=== PATIENT | female | born 1960 | race Caucasian/White ===

== ENCOUNTER 2024-03-03 15:02 | Outpatient (AMB) | payer OTHER, SELFPAY ==
[2024-03-03 15:03] VITALS: BP 156/90; PULSE 76; O2SAT 96; BMI 34.8
--- NOTE | 2024-03-03 15:03 | HO.NEPHOV ---
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 Required: No Accompanied by: Self / Same As Patient Allergies acetaminophen [From Percocet] Allergy (Mild, Verified 03/03/24 15:08) Unknown codeine Allergy (Mild, Verified 03/03/24 15:08) Unknown hydrochlorothiazide Allergy (Mild, Verified 03/03/24 15:08) Unknown morphine Allergy (Mild, Verified 03/03/24 15:08) Unknown oxycodone [From Percocet] Allergy (Mild, Verified 03/03/24 15:08) Unknown IVP contrast dye Allergy (Mild, Uncoded 03/03/24 15:08) Unknown sulfa Drugs Allergy (Mild, Uncoded 03/03/24 15:08) Unknown HPI Comments Details: Tanya is a pleasant 63-year-old man with a history of labile hypertension. Up until 2019 she was doing pretty well with respect to her blood pressure. In 2019 she had a syncopal episode and she was found to have orthostatic hypotension. She was admitted to a hospital in [place] and underwent tilt-table test. Due to orthostatic hypotension she was given midodrine. Two years later the blood pressure was rather elevated therefore she discontinued the midodrine. She is currently on lisinopril 5 mg. She has been monitoring of blood pressure at home Blood pressure has been rather erratic. She does have some decrease in blood pressure postprandially. She underwent cardiac workup. She is waiting for a 24 hour Holter monitor results. She underwent a 24 hour ambulatory blood pressure monitoring. The nocturnal readings for excellent. She uses a CPAP machine. Daytime readings were elevated consistently. [facility] Medical History (Updated 03/03/24 @ 16:05 by Zeus Lawson MD) Syncope Spinal stenosis Singers' nodes PTSD (post-traumatic stress disorder) Osteopenia GERD (gastroesophageal reflux disease) Essential (primary) hypertension Depressive disorder COPD (chronic obstructive pulmonary disease) Anxiety Anemia Allergic rhinitis Surgical History (Updated 03/03/24 @ 15:09 by Salma Grider) History of right oophorectomy (~11/2023) History of tubal ligation History of oral surgery History of hysterectomy History of hernia repair H/O section Family History Mother Stroke Hypertension Father Prostate cancer Heart disease Sister Hypertension Paternal Uncle Diabetes Physical Exam Vital Signs: Last Vital Signs Pulse 76 03/03/24 15:03 BP 156/90 H 03/03/24 15:03 Pulse Ox 96 03/03/24 15:03 Oxygen Delivery Method Room Air 03/03/24 15:03 BMI result Body Mass Index 34.8 Const General: comfortable Nutritional Appearance: well nourished Orientation/consciousness: patient oriented x3 HEENT Head: No normal to inspection Mouth: moist mucous membranes Neck Neck: Yes supple and Yes no JVD Resp Auscultation: clear to auscultation bilaterally, no rales and rub present Cardio Jugular venous distension: no JVD Palpation: no palpable S3 and no palpable S4 Heart sounds: no rubs GI Palpation (GI): Soft to palpation and nontender Percussion: No Fluid wave present General: Yes no CVA tenderness Back/Spine/Pelvis Back: no CVA tenderness Skin General skin exam: no rashes or lesions noted Neuro General: patient oriented x3 Extrem General: Yes no pedal edema and No clubbing Results Reviewed Results Reviewed: As of July 2023 Cortisol was normal aldosterone 4.0 renin 0.8 catecholamines were normal. Nephrology Results: No Data to Display Assessment & Plan Assessment & Plan (1) Orthostatic hypotension: Code(s): I95.1 - Orthostatic hypotension Category: Medical (2) HTN (hypertension): Code(s): I10 - Essential (primary) hypertension Category: Medical Plan 63-year-old woman with labile hypertension. Tanya has orthostatic hypotension with occasional tachycardia. No documented supine hypertension based on 24 hour ABP. She has autonomic dysfunction. We discussed all orthostatic precautions including had an elevation at 30 degrees, tight stockings and gradual change in posture. She will benefit from a referral to dysautonomia Clinic. For now I have taken liberty of increasing lisinopril from 5 mg up to 10 mg to be taken during daytime. She can continue monitoring of blood pressure at home. Medications: New lisinopril 10 mg (2 x 5 mg) PO DAILY 180 tabs 2RF
== END 2024-03-03 15:46 | disposition home or self-care (01) ==
LOC: HO.HKA 15:02
PROVIDERS: PCP Internal Medicine; Visit Provider Internal Medicine Hypertension Specialist
DX: I95.1 Orthostatic hypotension (principal); I10 Essential (primary) hypertension
CPT/HCPCS: 99214

== ENCOUNTER → 2024-03-03 15:02 | Outpatient (BNVA) | payer OTHER, SELFPAY | PROVIDERS: PCP Internal Medicine; Visit Provider Internal Medicine Hypertension Specialist | DX: I95.1 Orthostatic hypotension (principal); I10 Essential (primary) hypertension | CPT/HCPCS: 99212 ==

== ENCOUNTER 2024-06-10 13:39 | Outpatient (AMB) | payer OTHER, SELFPAY ==
[2024-06-10 13:48] VITALS: BP 152/98; PULSE 81; O2SAT 96; BMI 33.6
--- NOTE | 2024-06-10 13:48 | HO.NEPHOV ---
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 Accompanied by: Self / Same As Patient Allergies acetaminophen [From Percocet] Allergy (Mild, Verified 06/10/24 13:50) Unknown codeine Allergy (Mild, Verified 06/10/24 13:50) Unknown hydrochlorothiazide Allergy (Mild, Verified 06/10/24 13:50) Unknown morphine Allergy (Mild, Verified 06/10/24 13:50) Unknown oxycodone [From Percocet] Allergy (Mild, Verified 06/10/24 13:50) Unknown IVP contrast dye Allergy (Mild, Uncoded 03/03/24 15:08) Unknown sulfa Drugs Allergy (Mild, Uncoded 03/03/24 15:08) Unknown Medication List - Last Reconciled 06/10/24 by Zeus Lawson MD albuterol sulfate 90 mcg/actuation inhalation atorvastatin 20 mg PO DAILY cholecalciferol (vitamin D3) 50 mcg PO DAILY clonazepam 1 mg PO BID cyanocobalamin (vitamin B-12) 1,000 mcg PO DAILY famotidine 20 mg PO BID PRN fluticasone propionate 50 mcg/actuation 1 spray intranasal DAILY lisinopril 10 mg (2 x 5 mg) PO DAILY mirtazapine 7.5 mg PO BEDTIME omeprazole 20 mg PO QAM propranolol 10 mg PO DAILY semaglutide (weight loss) (Wegovy) mg subcut QWEEK simethicone mg PO PRN valacyclovir 500 mg PO DAILY PRN HPI Comments Details: Tanya is a pleasant 63-year-old man with a history of labile hypertension. Up until 2019 she was doing pretty well with respect to her blood pressure. In 2019 she had a syncopal episode and she was found to have orthostatic hypotension. She was admitted to a hospital in [place] and underwent tilt-table test. Due to orthostatic hypotension she was given midodrine. Two years later the blood pressure was rather elevated therefore she discontinued the midodrine. She is currently on lisinopril 5 mg. She has been monitoring of blood pressure at home Blood pressure has been rather erratic. She does have some decrease in blood pressure postprandially. She underwent cardiac workup. She is waiting for a 24 hour Holter monitor results. She underwent a 24 hour ambulatory blood pressure monitoring. The nocturnal readings for excellent. She uses a CPAP machine. Daytime readings were elevated consistently. 06/10 Home BP aceptable She monitors her BP and takes Lisinopril accordingly REcent Holter was abnormal per patient. She has > 60 PACs Has appointment with Dysautonomia clinic in May of 2025 ! [facility] [place] [facility] Medical History (Updated 03/03/24 @ 16:05 by Zeus Lawson MD) Syncope Spinal stenosis Singers' nodes PTSD (post-traumatic stress disorder) Osteopenia GERD (gastroesophageal reflux disease) Essential (primary) hypertension Depressive disorder COPD (chronic obstructive pulmonary disease) Anxiety Anemia Allergic rhinitis Surgical History History of right oophorectomy (~11/2023) History of tubal ligation History of oral surgery History of hysterectomy History of hernia repair H/O section Family History Mother Stroke Hypertension Father Prostate cancer Heart disease Sister Hypertension Paternal Uncle Diabetes Physical Exam Vital Signs: Last Vital Signs Pulse 81 06/10/24 13:48 BP 130/80 06/10/24 14:04 Pulse Ox 96 06/10/24 13:48 Oxygen Delivery Method Room Air 06/10/24 13:48 BMI result Body Mass Index 33.6 Const General: comfortable; No acute distress Orientation/consciousness: patient oriented x3 Eyes General: appearance normal, both eyes and all related structures Visual Zhang: normal visual zhang by confrontation Neck Neck: Yes supple and Yes no JVD Resp Effort & Inspection: normal respiratory effort and respiratory effort not decreased Auscultation: rhonchi Cardio Palpation: no palpable S3 and no palpable S4 Heart sounds: no rubs GI Inspection: Yes normal to inspection Palpation (GI): Soft to palpation Percussion: Yes normal to percussion Auscultation: normal bowel sounds General: Yes no CVA tenderness Back/Spine/Pelvis Back: no CVA tenderness Skin General skin exam: no petechiae and no purpura Neuro General: patient oriented x3 and no focal motor deficits Extrem General: No clubbing and No edema Results Reviewed Nephrology Results: No Data to Display Assessment & Plan Assessment & Plan (1) Orthostatic hypotension: Code(s): I95.1 - Orthostatic hypotension Category: Medical (2) HTN (hypertension): Code(s): I10 - Essential (primary) hypertension Category: Medical Plan 63-year-old woman with labile hypertension. Tanya has orthostatic hypotension with occasional tachycardia. No documented supine hypertension based on 24 hour ABP. She has autonomic dysfunction. We discussed all orthostatic precautions including had an elevation at 30 degrees, tight stockings and gradual change in posture. She will benefit from a referral to dysautonomia Clinic. No change in meds. She can continue monitoring of blood pressure at home. At her request, will refer her to biometrics head at [facility] Orders: Referrals Cardiac Electrophysiology Referral I95.1 - Orthostatic hypotension Coding Level of Care Code Est Pt Level 4 (36570) Diagnoses Orthostatic hypotension I95.1 HTN (hypertension) I10
[2024-06-10 14:03] VITALS: BP 130/80
[2024-06-10 14:04] VITALS: BP 130/80
== END 2024-06-10 14:19 | disposition home or self-care (01) ==
PROVIDERS: PCP Internal Medicine; Visit Provider Internal Medicine Hypertension Specialist
DX: I95.1 Orthostatic hypotension (principal); I10 Essential (primary) hypertension
CPT/HCPCS: 99214

== ENCOUNTER → 2024-06-10 13:39 | Outpatient (BNVA) | payer OTHER, SELFPAY | PROVIDERS: PCP Internal Medicine; Visit Provider Internal Medicine Hypertension Specialist | DX: I95.1 Orthostatic hypotension (principal); I10 Essential (primary) hypertension | CPT/HCPCS: 99212 ==

== ENCOUNTER 2024-12-08 14:33 | Outpatient (AMB) | payer OTHER, SELFPAY ==
[2024-12-08 14:36] VITALS: BP 110/66; PULSE 76; O2SAT 97; BMI 29.9
--- NOTE | 2024-12-08 14:36 | HO.NEPHOV_ITS ---
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: No Accompanied by: Self / Same As Patient Allergies acetaminophen [From Percocet] Allergy (Mild, Verified 12/08/24 14:38) Unknown codeine Allergy (Mild, Verified 12/08/24 14:38) Unknown hydrochlorothiazide Allergy (Mild, Verified 12/08/24 14:38) Unknown morphine Allergy (Mild, Verified 12/08/24 14:38) Unknown oxycodone [From Percocet] Allergy (Mild, Verified 12/08/24 14:38) Unknown IVP contrast dye Allergy (Mild, Uncoded 03/03/24 15:08) Unknown sulfa Drugs Allergy (Mild, Uncoded 03/03/24 15:08) Unknown Medication List - Last Reconciled 12/08/24 by Zeus Lawson MD albuterol sulfate 90 mcg/actuation inhalation atorvastatin 20 mg PO DAILY cholecalciferol (vitamin D3) 50 mcg PO DAILY clonazepam 1 mg PO BID cyanocobalamin (vitamin B-12) 1,000 mcg PO DAILY famotidine 20 mg PO BID PRN fluticasone propionate 50 mcg/actuation 1 spray intranasal DAILY lisinopril 10 mg (2 x 5 mg) PO DAILY mirtazapine 7.5 mg PO BEDTIME omeprazole 20 mg PO QAM propranolol 10 mg PO BID PRN simethicone mg PO PRN valacyclovir 500 mg PO DAILY PRN HPI Comments Details: Tanya is a pleasant 63-year-old man with a history of labile hypertension. Up until 2019 she was doing pretty well with respect to her blood pressure. In 2019 she had a syncopal episode and she was found to have orthostatic hypotension. She was admitted to a hospital in [place] and underwent tilt-table test. Due to orthostatic hypotension she was given midodrine. Two years later the blood pressure was rather elevated therefore she discontinued the midodrine. She is currently on lisinopril 5 mg. She has been monitoring of blood pressure at home Blood pressure has been rather erratic. She does have some decrease in blood pressure postprandially. She underwent cardiac workup. She is waiting for a 24 hour Holter monitor resu s. She underwent a 24 hour ambulatory blood pressure monitoring. The nocturnal readings for excellent. She uses a CPAP machine. Daytime readings were elevated consistently. 06/10 Home BP aceptable She monitors her BP and takes Lisinopril accordingly REcent Holter was abnormal per patient. She has > 60 PACs Has appointment with Dysautonomia clinic in May of 2025 ! Lost 6 lbs with [employer] 12/08/24 Lost 20 lbs with [facility] Off [facility] now Monitoring BP at home Takes Lisinopril 5 to 10 mg based on BP [facility] Medical History (Updated 03/03/24 @ 16:05 by Zeus Lawson MD) Syncope Spinal stenosis Singers' nodes PTSD (post-traumatic stress disorder) Osteopenia GERD (gastroesophageal reflux disease) Essential (primary) hypertension Depressive disorder COPD (chronic obstructive pulmonary disease) Anxiety Anemia Allergic rhinitis Surgical History History of right oophorectomy (~11/2023) History of tubal ligation History of oral surgery History of hysterectomy History of hernia repair H/O section Family History Mother Stroke Hypertension Father Prostate cancer Heart disease Sister Hypertension Paternal Uncle Diabetes Physical Exam Vital Signs: Last Vital Signs Pulse 76 12/08/24 14:36 BP 110/66 12/08/24 14:36 Pulse Ox 97 12/08/24 14:36 Oxygen Delivery Method Room Air 12/08/24 14:36 BMI result Body Mass Index 29.9 Comfortable Neck supple no JVD. Lungs entry equal no rales. Heart S1-S2 heard no gallop or rub. Abdomen soft nontender. Neuro alert awake oriented. No asterixis. Extremities no edema. Results Reviewed Results Reviewed: As of July 2023 Cortisol was normal aldosterone 4.0 renin 0.8 catecholamines were normal. Nephrology Results: No Data to Display Assessment & Plan Assessment & Plan (1) Orthostatic hypotension: Code(s): I95.1 - Orthostatic hypotension Category: Medical (2) HTN (hypertension): Code(s): I10 - Essential (primary) hypertension Category: Medical Plan 63-year-old woman with labile hypertension. Tanya has a h/o orthostatic hypotension with occasional tachycardia. No documented supine hypertension based on 24 hour ABP. She has autonomic dysfunction. We discussed all orthostatic precautions including had an elevation at 30 degrees, tight stockings and gradual change in posture. Referred to dysautonomia Clinic - appoinment Pending in May 2024 No change in meds. She can continue monitoring of blood pressure at home. At her request, referred her to helminthologist at [facility] - work up in progress. Coding Level of Care Code Est Pt Level 4 (73265) Diagnoses Orthostatic hypotension I95.1 HTN (hypertension) I10
--- OUTSIDE RECORDS SUMMARY | 2024-12-08 19:02 | XMS_ITS | Patient Health Record ---
Author Organization [facility] Address [address] [place] [address] Care Team Providers Care Skiver Uppers Or Linings Name Role Phone JAYDEN BLEDSOE Primary Care Provider Allergies Allergen (clinical drug ingredient) Drug/Non Drug Allergy documented on EMR Reaction Allergy Type Onset Date Status codeine Codeine (uncoded) anaphylaxis Allergy Active IVP Dye (uncoded) anaphylaxis Allergy Active morphine Morphine (uncoded) anaphylaxis Allergy Active Steroids Steroids (uncoded) anaphylaxis Allergy Active Substance with sulfonamide structure and antibacterial mechanism of action (substance) Sulfa (uncoded) anaphylaxis Allergy Active Reason For Referral No Information Medications Medication SIG (Take, Route, Frequency, Duration) Notes Start Date End Date Status Betamethasone Dipropionate 0.05 % 1 application Externally Once a day for 7 days 06/17/2020 Not-Taking valACYclovir HCl 500 MG 1 tablet Orally Once a day prn for 10 day(s) Active ProAir HFA 108 (90 Base) MCG/ACT 1 puff as needed Inhalation every 4 hrs Active clonazePAM 0.5 MG 1 tablet at bedtime Orally Once a day Active Citalopram Hydrobromide 10 MG 1 tablet Orally Once a day Active Albuterol Sulfate (2.5 MG/3ML) 0.083% 3 ml as needed Inhalation every 8 hrs Active Social History Tobacco Use: Social History Observation Description Date Details (start date - stop date) Current Smoker NA - NA Sex Assigned At : Social History Observation Description Sex Assigned At Female Tobacco Use/Smoking Question Answer Notes Are you a current smoker How often do you smoke cigarettes? every day How many cigarettes a day do you smoke? 6-10 Additional Findings: Tobacco User Modera te cigarette smoker (10-19 cigs/day) Problems Problem Type SNOMED Code ICD Code Onset Dates Problem Status W/U Status Risk Notes Problem Nicotine dependence unspecified, with withdrawal (F17.203) Active confirmed Problem Constipation (12252799) Constipation, unspecified (K59.00) Active confirmed Problem Vitamin D deficiency (70256246) Vitamin D deficiency (E55.9) Active confirmed Problem Obesity (284539592) Obesity (E66.9) Active confirmed Problem Panic disorder (276225913) Panic disorder (F41.0) Active confirmed Problem Asthma without status asthmaticus (42690046) Asthma, unspecified asthma severity, unspecified whether complicated, unspecified whether persistent (J45.909) Active confirmed Problem Smoking (98380009) Smoking (F17.200) Active confirmed Plan Of Treatment Pending Test Test Name Order Date VENIPUNCT, ROUTINE 07/07/2020 X ray : Foot, left 3v 08/20/2020 Medical (General) History Medical History History ICD Code Myokymia PTSD Anxiety Depression Anemia Osteopenia Asthma Herpes Arthritis Carpal Tunnel Surgical History Surgery Date(Month/Year) partial hysterectomy 1994 Left upper quadrant hernia surgery 2013 Hospitalization History Reason Date(Month/Year) Syncope 2019 Psych Episode 2010 Psych Episode 2015
--- OUTSIDE RECORDS SUMMARY | 2024-12-08 19:02 | XMS_ITS | Patient Health Record ---
Author Organization [facility] Address [address] [facility] [address] [place] [address] Care Team Providers Care Casing Inspector Name Role Phone YARY MCCLAIN Primary Care Provider Unavailabl e ALLERGIES Allergen (clinical drug ingredient) Drug/Non Drug Allergy documented on EMR Reaction Allergy Type Onset Date Status codeine Codeine (uncoded) anaphylaxis Allergy Active IVP Dye (uncoded) anaphylaxis Allergy Active morphine Morphine (uncoded) anaphylaxis Allergy Active Steriods (uncoded) anaphylaxis Allergy Active Substance with sulfonamide structure and antibacterial mechanism of action (substance) Sulfa (uncoded) anaphylaxis Allergy Active REASON FOR REFERRAL No Information MEDICATIONS Medication SIG (Take, Route, Frequency, Duration) Notes Start Date End Date Status Albuterol Sulfate (2.5 MG/3ML) 0.083% 3 ml as needed Inhalation every 6 hrs Active ProAir HFA 108 (90 Base) MCG/ACT 1 puff as needed Inhalation every 4 hrs Active busPIRone HCl 15 MG 1 tablet Orally Twic e a day Not-Taking Vitamin D 50 MCG (2000 UT) 1 capsule Orally Once a day for 30 day(s) Not-Taking clonazePAM 2 MG 1 tablet at bedtime Orally Once a day Active valACYclovir HCl 500 MG 1 tablet Orally as needed Active SOCIAL HISTORY Tobacco Use: Social History Observation Description Date Details (start date - stop date) Current Smoker NA - NA Sex Assigned At : Social History Observation Description Sex Assigned At Unknown Tobacco Use/Smoking Question Answer Notes Are you a current smoker How often do you smoke cigarettes? every day How many cigarettes a day do you smoke? 6-10 How soon after you wake up do you smoke your fir st cigarette? 6-30 minutes Alcohol Screen (Audit-C) Question Answer Notes Did you have a drink containing alcohol in the p ast year? No Points 0 Interpretation Negative Tobacco use other than smoking: Question Answer Notes Are you an other tobacco user? No V apor PROBLEMS Problem Type ICD Code Onset Dates Problem Status W/U Status Risk SNOMED Code Notes Problem Reaction to severe stress, unspecified (F43.9) Active confirmed Stress and adjustment reaction (disorder) (749086597) Problem Diverticulosis of intestine, part unspecified, without perforation or abscess without bleeding (K57.90) Active confirmed Diverticul a of intestine (67447571) Problem Constipation, unspecified (K59.00) Active confirmed Constipation (84846766) Problem Hemorrhage of anus and rectum (K62.5) Active confirmed Hemorrhag e of rectum and anus (143005763) Problem Unspecified abdominal pain (R10.9) Active confirmed Abdominal pain (37889343) PLAN OF TREATMENT No Information Insurance Providers Payer Name Payer Address Payer Phone Subscriber Number Group Number Insured Name Patient Relationship to Insured Coverage Start Date Coverage End Date [employer] [facility] [address] [address] [place], [place] [id number] Tanya Drake Self - patient is the insured MEDICAL (GENERAL) HISTORY Medical History History ICD Code Myokymia Ptsd Anxiety Depression Anemia Osteopenia Asthma Herpes Arthritis Carpal tunnel Constipation, unspecified K59.00 Abnormal electrocardiogram [ECG] [EKG] R 94.31 Allergic contact dermatitis, unspecified cause L23.9 IBS Diverticulosis History of diverticulitis Hemorrhoids Hernia Gerd Surgical History Surgery Date(Month/Year) partial hysterectomy 1994 Left upper quadrant hernia surgery 2012 three times Colonoscopy about 5 years Egd about ten years ago colonoscopy 2020 Hospitalization History Reason Date(Month/Year) Psych Episode 2010 Psych Episode 2016 Syncope 2019
--- OUTSIDE RECORDS SUMMARY | 2024-12-08 19:02 | XMS_ITS | Clinical Summary ---
Author Organization [facility] Address [address] [place] [address] [place] [address] Phone Care Team Providers Care Residential Program Coordinator Name Role Phone Ernestine De Jesus Primary Care Provider [phone] Allergies Active Allergy Reactions Criticality Noted Date Comments Codeine 06/14/2023 Iodinated Contrast Media 06/18/2023 Morphine 06/14/2023 Oxycodone-Acetaminophen 06/14/2023 Sulfadiazine 06/14/2023 Medications lisinopril 5 MG tablet Take 5 mg by mouth 1 (one) time each day Active propranolol (INDERAL) 10 MG tablet Take 10 mg by mouth 1 (one) time each day Active ibuprofen (ADVIL,MOTRIN) 400 MG tablet Take 400 mg by mouth if needed Active clonazePAM (KlonoPIN) 1 MG tablet Take 1 mg by mouth in the morning and 1 mg in the evening. Active valACYclovir (VALTREX) 500 MG tablet Take 1,000 mg by mouth if needed Active fluticasone (FLONASE) 50 MCG/ACT nasal spray Administer 1 spray into each nostril 1 (one) time each day Active cholecalciferol (VITAMIN D-3 SUPER STRENGTH) 50 MCG (2000 UT) tablet Take 2,000 Units by mouth 1 (one) time each day Active mirtazapine (REMERON) 7.5 MG tablet Take 7.5 mg by mouth every night Active cyanocobalamin (VITAMIN B-12) 1000 MCG tablet Take 1,000 mcg by mouth 1 (one) time each day Active Estrogens Conjugated (Premarin) 0.625 MG/GM cream Insert into the vagina Active hydroCHLOROthia zide 12.5 MG tablet Take 12.5 mg by mouth 1 (one) time each day Active Active Problems Problem Noted Date Diagnosed Date Hypertension 06/14/2023 06/14/2023 Vitamin D deficiency 06/14/2023 06/14/2023 Resolved Problems Problem Noted Date Diagnosed Date Resolved Date Anemia 06/14/2023 06/14/2023 06/14/2023 Allergic rhinitis 06/14/2023 06/14/2023 06/14/2023 Anxiety 06/14/2023 06/14/2023 06/14/2023 Chronic obstructive pulmonary disease 06/14/202301/202306/14/2023 Depressive disorder 06/14/2023 06/14/2023 06/14/20 Gastroesophageal reflux disease 06/14/2023 06/14/2023 Personal history of tobacco use 06/14/2023 06/14/2023 Irritable bowel syndrome 06/14/2023 06/14/202301/2023 Obstructive sleep apnea syndrome 06/14/2023 06/14/20 23 06/14/2023 Posttraumatic stress disorder 06/14/2023 06/14/2023 06/14/2023 Osteopenia 06/14/2023 06/14/2023 06/14/2023 Singers' nodes 06/14/2023 06/14/2023 06/14/2023 Spinal stenosis 06/14/2023 06/14/2023 06/14/2023 Immunizations Name Administration Dates Next Due Pneumococcal Polysaccharide 12/29/2012 Tdap 12/12/2022 Family History Medical History Relation Comments Cancer Father Prostate Cancer Heart disease Father Diabetes Father's Brother Hypertension Mother Stroke Mother Hypertension Sister Relation Status Comments Father Father's Brother Mother Sister Social History Tobacco Use Types Packs/Day Years Used Date Smoking Tobacco: Every Day Cigarettes Smokeless Tobacco: Never Alcohol Use Standard Drinks/Week Comments Yes 0 (1 standard drink = 0.6 oz pur e alcohol) Comments Unknown Sex and Gender Information Value Date Recorded Sex Assigned at Not on file Legal Sex Female 8:10 AM EDT Gender Identity Not on file Sexual Orientation Not on file Last Filed Vital Signs Vital Sign Reading Time Taken Comments Blood Pressure 141/98 08/06/2023 1:57 PM EDT Pulse 88 08/06/2023 1:57 PM EDT Temperature - - Respiratory Rate - - Oxygen Saturation 97% 08/06/2023 1:57 PM EDT Inhaled Oxygen Concentration - - Weight 78.6 kg (173 lb 3.2 oz) 08/06/2023 1:57 P M EDT Height - - Body Mass Index - - Plan of Treatment Health Maintenance Due Date Last Done Comments Breast Cancer Screening 1960 Colorectal Cancer Screening: Annual FOBT 2008 Colorectal Cancer Screening: Colonoscopy 2008 Colorectal Cancer Screening: Sigmoidoscopy 2008 Pneumococcal Vaccine: 65+ Ye ars (2 of 2 - PCV) 12/29/2013 12/29/2012 Pneumococcal Vaccine: Pediat rics (0 to 5 Years) and At-Risk Patients (6 to 64 Years) (2 of 2 - PCV) 12/29/2013 12/29/2012 Influenza Vaccine (#1) 2024 Hepatitis B Vaccine Aged Out No longe r eligible based on patient's age to complete this topic Insurance [facility] ([id number]) [place] [id number] [facility] ([id number]) [place] [id number] Care Teams Residential Program Coordinator Relationship Specialty Start Date End Date Ernestine De Jesus [address] [place] [id number] PCP - General 06/18/23
--- OUTSIDE RECORDS SUMMARY | 2024-12-08 19:02 | XMS_ITS ---
Author Organization [facility] Address [address] [place] [address] Care Team Providers Care Trucking Manager Name Role Phone CRUZ RODRIGUEZ, RACHEL Primary Care Provider Joan Ivan Unavailable [phone] REASON FOR VISIT ULTRA - OV CYST FOLLOW UP Encounters Encounter Location Date Provider Diagnosis [facility] [employer] [facility] [address] [place] [address] 10/12/2023 Joan Smith Plan Of Treatment Next Appt Details Provider Name:Joan paris, 02/09/2025 01:00:00 PM, [address], [address], [place], [address], Progress Notes * ONEIDA SALGUERODOB:1960 (64 yo F)Acc No.[id number]:10/12/2023 PROGRESS NOTES Patient:?ONEIDA SALGUERO Appointment Provider:Mojgan paris M.D. :1960???Age:63 Y???Sex:Female D ate:10/12/2023 Address:[address] [place] [address] [address], [id number] Pcp:RACHEL ARROYO NP Subjective: * Chief Complaints: * ???1. ULTRA - OV CYST FOLLOW UP. * Medical History:? Objective: * Vitals:? Assessment: Plan: * Treatment: * Images: Billing Information: * Visit Code:? * Procedure Codes:? * Electronic signature of Saul Smith MD on 12/08/2024 at 07:01 PM EST Sign off status: Pending * Appointment Provider:?Joan Smith M.D. Date:?10/12/2023 Generated for Arnold kent/Beronica/Cara on:?12/08/2024 07:01 PM EST
--- OUTSIDE RECORDS SUMMARY | 2024-12-08 19:02 | XMS_ITS | Patient Health Record ---
Author Organization [facility] Address [address] [place] [address] Care Team Providers Care Migration Specialist Name Role Phone CRUZ RODRIGUEZ, RACHEL Primary Care Provider Joan Ivan Unavailable [phone] Allergies Allergen (clinical drug ingredient) Drug/Non Drug Allergy documented on EMR Reaction Allergy Type Onset Date Status IVP DYE (uncoded) Unknown Allergy Ac tive codeine CODEINE Unknown Drug Allergy Active DARVON Unknown Drug Allergy Active morphine MORPHINE SULFATE Unknown Drug Allergy Active acetaminophen / oxycodone PERCOCET Unknown Drug Allergy Active Substance with sulfonamide structure and antibacterial mechanism of action (substance) Sulfa Antibiotics Itching Drug Allergy Active Reason For Referral No Information Medications Medication SIG (Take, Route, Frequency, Duration) Notes Start Date End Date Status Mirtazapine 7.5 MG Oral for 30 Active Vitamin D3 50 MCG (1999 UT) Oral for 90 Active Vitamin B-12 1000 MCG TAKE 1 TABLET BY M OUTH DAILY Oral for 30 Active Premarin 0.625 MG/GM 1 gram Vaginal Twic e a week for 90 days 09/19/2018 Active Omeprazole 20 MG Oral for 90 A ctive Lisinopril 5 MG TAKE 1 TABLET BY LEANDRO TH EVERY DAY. Oral for 90 Active Lisinopril-hydroCHLOROth iazide 20-12.5 MG 1 tablet Orally Once a day Active Albuterol Sulfate HFA 108 (90 Base) MCG/ACT Inhalation for 50 A ctive Propranolol HCl 10 MG Oral for 90 Active Lidocaine HCl 2 % 1 application to affected area as needed Externally Three times a day for 10 days 08/21/2018 Not-Taking clonazePAM 1 MG 1 tablet Orally Once a day Jeremiah-[facility]J 07/30/2013 Active Flonase Allergy Relief Not-Taking Social History Tobacco Use: Social History Observation Description Date Details (start date - stop date) Current Smoker NA - NA Tobacco Use/Smoking Question Answer Notes Are you a current smoker How often do you smoke cigarettes? every day How many cigarettes a day do you smoke? 6-10 Alcohol Screen (Audit-C) Question Answer Notes Did you have a drink contain ing alcohol in the past year? Yes How often did you have a dri nk containing alcohol in the past year? 4 or more times a week (4 points) Points 4 Interpretation Positive Sexual History Question Answer Notes Had sex in the past 12 months (vaginal, oral, or anal)? Yes with Men only Prevention strategies discussed: Condoms Problems Problem Type SNOMED Code ICD Code Onset Dates Problem Status W/U Status Risk Notes Problem Essential hypertension (52111720) Essential (primary) hypertension (I10) Active confirmed Problem Gastro-esophageal reflux disease without esophagitis (563722514) Gastro-esophageal reflux disease without esophagitis (K21.9) Active confirmed Problem Herpetic vulvovaginitis (96452007) Herpetic vulvovaginitis (054.11) Active confirmed Problem Depressive disorder (61796723) Depressive disorder, not elsewhere classified (311) Active confirmed Major Problem Menopausal symptom (40093854) Symptomatic menopausal or female climacteric states (627.2) Active confirmed Major Plan Of Treatment Pending Test Test Name Order Date MAMMOGRAM, SCREENING 02/19/2015 MAMMOGRAM, SCREENING 10/12/2023 Urinalysis 05/03/2018 INHIBIN B 10/12/2023 THIN PREP,HPV,STEPHEN IF HPV+/CYT-,CT/GC(>2 9YR)(SCRN) 05/03/2018 BONE DENSITY 10/12/2023 MM Digital Mammo Screening 05/03/2018 MM Digital Mammo Screening 10/12/2023 Next Appt Details Provider Name:Joan paris, 02/09/2025 01:00:00 PM, [address], [place], [address], Insurance Providers Payer Name Payer Address Payer Phone Subscriber Number Group Number Insured Name Patient Relationship to Insured Coverage Start Date Coverage End Date [facility] [id number] [place] [phone] [id number] ONEIDA SALGUERO Self - patient is the insured Medical (General) History Medical History History ICD Code PTSD Herpetic vulvovaginitis 054.11 Depressive disorder, not elsewhere class ified 311 Symptomatic menopausal or female climact sky states 627.2 Disorder of bone density and structure, unspecified M85.9 Essential (primary) hypertension I10 Gastro-esophageal reflux disease without esophagitis K21.9 Surgical History Surgery Date(Month/Year) BTL 1988 Breast cyst aspiration C/S x3 Colonoscopy D+C Total Hyst for fibroids. Ovaries remain. 1994 Dental surgery Herniorrhaphy 2013 Hospitalization History Reason Date(Month/Year) Psych Felipe 3 Days 2016 Hospitilized x 3 Days for Illness See Surgical Hx
--- OUTSIDE RECORDS SUMMARY | 2024-12-08 19:02 | XMS_ITS ---
Author Organization [facility] Address [address] [place] [address] Care Team Providers Care High School Auto Repair Teacher Name Role Phone CRUZ RODRIGUEZ, RACHEL Primary Care Provider Joan Ivan Unavailable [phone] Allergies Allergen (clinical drug ingredient) Drug/Non Drug [...] (substance) Sulfa Antibiotics Itching Drug Allergy Active Results Component Value Reference Range Notes CANC ANT-125 Reviewed date:10/13/2023 03:09:55 PM Interpretation: Performing Lab:Testing performed or reported by [facility] a Service of [address] [address] Boris Richter MD, Wool Batting Worker [facility]# [id number] Notes/Report: CANC ANT-125 10 (0-35) U/ML Testing performed using the [employer] Electrochemilluminescence CA125 assay. Values obtained with other assay methods or kits cannot be used interchangeably. Use results with caution when patient is on monoclonal antibody therapy. CEA MONOCLONAL Reviewed date:10/15/2023 11:32:47 AM Interpretation: Performing Lab:Testing performed or reported by [facility] a Service of [address] [address] Boris Richter MD, Wool Batting Worker [facility]# [id number] Notes/Report: CEA MONOCLONAL <0.6 (0-3.8) NG/ML In smokers the CEA reference range upper limit may be as high as 5.5 ng/mL Testing performed using the [employer] Electrochemiluminescence CEA assay. Values obtained with other assay methods or kits cannot be used interchangeably. Variable results may occur in patients who have diagnostic tests/therapy using mouse monoclonal antibodies. Call Lab at [phone]. 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 SPORTS EDITOR Physical 60-85+ Medications Medication SIG (Take, Route, Frequency, Duration) Notes Start Date End Date Status Mirtazapine 7.5 MG Oral for 30 Active Vitamin D3 50 MCG (2000 UT) Oral for 90 Active Vitamin B-12 1000 MCG TAKE 1 TABLET BY M OUTH DAILY Oral for 30 Active Premarin 0.625 MG/GM 1 gram Vaginal Twic e a week for 90 days 09/19/2018 Active clonazePAM 1 MG 1 tablet Orally Once a day Jeremiah-MJ 07/30/2013 Active Lidocaine HCl 2 % 1 application to affected area as needed Externally Three times a day for 10 days 08/21/2018 Not-Taking Flonase Allergy Relief Not-Taking Omeprazole 20 MG Oral for 90 A ctive Lisinopril 5 MG TAKE 1 TABLET BY LEANDRO TH EVERY DAY. Oral for 90 Active Albuterol Sulfate HFA 108 (90 Base) MCG/ACT Inhalation for 50 A ctive Propranolol HCl 10 MG Oral for 90 Active Social History Tobacco Use: Social History [...] W/U Status Risk Notes Problem Essential hypertension (46919082) Essential (primary) hypertension (I10) Active confirmed Problem Gastro-esophagea l reflux disease without esophagitis (587260217) Gastro-esophagea l reflux disease without esophagitis (K21.9) Active confirmed Vital Signs Temperature 97.3 degrees Fahrenheit 10/12/20 23 Blood pressure systolic 148 mm Hg 10/12/20 23 Blood pressure diastolic 88 mm Hg 023 Height 60.5 in 10/12/2023 Weight 171 lbs 10/12/2023 BMI 32.84 kg/m2 10/12/2023 Encounters Encounter Location Date Provider Diagnosis [address] [place] [address] 10/12/2023 Joan Smith Encounter for gynecological examination (general) (routine) without abnormal findings Z01.419 ; Encounter for screening mammogram for malignant neoplasm of breast Z12.31 ; Other specified disorders of bone density and structure, multiple sites M85.89 and Unspecified ovarian cyst, right side N83.201 Assessments Encounter Date Diagnosis (ICD Code) Assessment Notes Treatment Notes Treatment Clinical Notes Section Notes 10/12/2023 Encounter for gynecological examination (general) (routine) without abnormal findings (ICD-10 - Z01.419) NO MORE PAP TESTS. 10/12/2023 Encounter for screening mammogram for malignant neoplasm of breast (ICD-10 - Z12.31) REGULAR MAMMOGRAMS AND SBE'S WERE RECOMMENDED. 10/12/2023 Other specified disorders of bone density and structure, multiple sites (ICD-10 - M85.89) DISCUSSED HER LAST BMD IN 2018 AND OSTEOPENIA AND ITS IMPACT ON HER HEALTH. ADEQUATE CALCIUM AND VIT D. WEIGHT BEARING EXERCISES. REPEAT HER BMD THIS YEAR. 10/12/2023 Unspecified ovarian cyst, right side (ICD-10 - N83.201) DISCUSSED FINDINGS ON PELVIC EXAM AND ON PELVIC ULTRASOUND DONE JUST NOW. SHE HAS A RIGHT ADNEXAL MASS THAT HAS INCREASED IN SIZE SLIGHTLY AND IS NOT CYSTIC. DISCUSSED POSSIBLE DIAGNOSES INCLUDING POSSIBILITY OF OVARIAN MALIGNANCY. TUMOR MARKERS WERE ORDERED. REFER TO SPORTS EDITOR ONCOLOGY. Plan Of Treatment Treatment Notes Assessment Notes Encounter for gynecological examination (general) (routine) without abnormal findings NO MORE PAP TESTS. Encounter for screening mamm ogram for malignant neoplasm of breast REGULAR MAMMOGRAMS AND SBE'S WERE RECOMMENDED. Other specified disorders of bone density and structure, multiple sites DISCUSSED HER LAST BMD IN 2018 AND OSTEOPENIA AND ITS IMPACT ON HER HEALTH. ADEQUATE CALCIUM AND VIT D. WEIGHT BEARING EXERCISES. REPEAT HER BMD THIS YEAR. Unspecified ovarian cyst, right side DISCUSSED FINDINGS ON PELVIC EXAM AND ON PELVIC ULTRASOUND DONE JUST NOW. SHE HAS A RIGHT ADNEXAL MASS THAT HAS INCREASED IN SIZE SLIGHTLY AND IS NOT CYSTIC. DISCUSSED POSSIBLE DIAGNOSES INCLUDING POSSIBILITY OF OVARIAN MALIGNANCY. TUMOR MARKERS WERE ORDERED. REFER TO SPORTS EDITOR ONCOLOGY. Pending Test Test Name Order Date MAMMOGRAM, SCREENING 10/12/2023 INHIBIN B 10/12/2023 BONE DENSITY 10/12/2023 MM Digital Mammo Screening 10/12/2023 Next Appt Details Follow Up: 1 Year or prn, Rain ason: Provider Name:Joan paris, 02/09/2025 01:00:00 PM, [address] [facility] [address], [address], [place], [address], Progress Notes * ONEIDA SALGUERODOB:1960 (63 yo F)Acc No.[id number]:10/12/2023 PROGRESS NOTES Patient:?ONEIDA SALGUERO Appointment Provider:?Joan paris M.D. :1960???Age:63 Y???Sex:Female D ate:10/12/2023 Address:[address] [place], [place] [id number] Pcp:RACHEL ARROYO NP Subjective: * Chief Complaints: * ???Annual SPORTS EDITOR PhysicalAnnual SPORTS EDITOR Physical 60-85+ * HPI: ???New/Follow-up Patient Consult:? S/P VAGINAL HYSTERECTOMY AT AGE 34 FOR BLEEDING FROM FIBROIDS. ?PELVIC ULTRASOUND DONE IN JUN 2019 FOR PAINS SHOWED A 3.9 X 3.1 X 3.0 CM RIGHT OVARY WITH A 2.6 X 2.6 X 2.2 SIMPLE CYST. SHE HAD A CT SCAN OF THE ABDOMEN AND PELVIS IN JUL 2019 FOR LEFT SIDED ABDOMINAL PAINS. THIS SHOWED DIVERTICULITIS OF THE DESCENDING COLON. AN INCIDENTAL FINDINGS WAS A 2.5 X 3.5 X 2.2 CM SOFT TISSUE DENSITY ON THE RIGHT ADENEXAL AREA THAT WAS THOUGHT LIKELY TO BE THE OVARY. ?WHEN SHE COMPLAINED OF ABDOMINAL PAINS AGAIN IN 2022, DR KOLB (SURGEON) ORDERED ANOTHER CT SCAN AND THIS SHOWED A SOFT TISSUE DENSITY IN THE RIGHT PELVIS ADJACENT TO THE RIGHT OVARY MEASURING 4.5 X 3.8 CM. THIS HAD INCREASED IN SIZE. ?PELVIC ULTRASOUND DONE AT OUR OFFICE TODAY SHOWED A SOFT TISSUE MASS ON THER RIGHT ADNEXAL AREA MEASURING 4.3 X 4.0 S 3.6 CM. THIS COULD NOT BE FROM THE OVARY. ?HER LAST MAMMOGRAM DONE IN JUN 2022 SHOWED BREASTS ARE NOT DENSE AND WAS NORMAL. ?HER LAST PAP TEST IN 2017 WAS NEGATIVE AND HPV NEGATIVE. SHE HAS NO HX OF ABNORMAL PAP TESTS. ?HER LAST BMD IN 2017 SHOWED OSTEOPENIA WITH T-SCORE OF -2.0 AT THE SPINE. FRAX=6.6%/0.6%. ?SHE HAD A COLONOSCOPY DONE IN 2020. ?MODERNA X 2. ???Annual:? Patient presents for annual exam, ages 60-85, postmenopausal. ?General Health Maintenance:?Current breast complaints:?no breast pain, mass, discharge, or skin changes ?Urinary problems:?patient reports no urinary health problems or bowel health problems ?Calcium intake:?takes adequate calcium via diet and supplementation ?Significant SPORTS EDITOR problems:?no significant community health consultant symptoms or problems * ROS:?general:?no?chest pain.?no?palpitations.?no?headache.?no?cough.?no?shortness of breath.?no?fever.?no?unexplained weight loss.?no?nausea/vomiting.?no?change in bowel movements.?no blood in stool.?no?genitourinary complaints.?no?skin complaints.? * Medical History:? 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 Control:?BTL, hyst.?Menarche?14.?Colonoscopy?2020, 2014.?Bone Density:?2018.? * OB History:?Total pregnancies?.?Total living children?2.?(s)?3.?Miscarriage(s)?3.? * Surgical History:?BTL 1989Br east cyst aspiration C/S x3 Colonoscopy D+C Total Hyst for fibroids. Ovaries remain. 1995Dental surgery Herniorrhaphy 2012 * Hospitalization/Major Diagno stic Procedure:?Psych Felipe 3 Days 2016Hospitilized x 3 Days for Illness See Surgical Hx * Family History:?Mother: dece ased, age 77, dementia, stroke.?Father: , age 77 Heart Attack, COPD, Postate Cancer.? Paternal Cousin: Breast cancer Sister: Autoimmune Disease, COPD, Depression. * Social History:?Tobacco Use:?Tobacco Use/Smoking?Are you a?current smoker ?How often do you smoke cigarettes??every day ?How many cigarettes a day do you smoke??6-10 ???Sexual History:?Sexual History?Had sex in the past 12 months (vaginal, oral, or anal)??Yes ?with?Men only ?Prevention strategies discussed:?Condoms ?Details of Sexual History?Are you sexually active??Yes ???Drugs/Alcohol:?Drugs?Have you used drugs other than those for medical reasons in the past 12 months??Yes ?Marijuana??Yes ?Alcohol Screen (Audit-C)?Did you have a drink containing alcohol in the past year??Yes ?How often did you have a drink containing alcohol in the past year??4 or more times a week (4 points) ?Points?4 ?Interpretation?Positive ???Miscellaneous:?Children: yes, 2. ?Exercise: yes, walking. ?Marital status: single, . ?Natural support system: yes. ?Occupation: Disabled. ?no Sexually active. * Medications:?TakingclonazePA M 1 MG Tablet 1 tablet Orally Once a day, Notes: Jeremiah-MJPremarin 0.625 MG/GM Cream 1 gram Vaginal Twice a weekVitamin B-12 1000 MCG Tablet TAKE 1 TABLET BY MOUTH DAILY Oral Vitamin D3 50 MCG (1999 UT) Capsule Oral Mirtazapine 7.5 MG Tablet Oral Propranolol HCl 10 MG Tablet Oral Albuterol Sulfate HFA 108 (90 Base) MCG/ACT Aerosol Solution Inhalation Lisinopril 5 MG Tablet TAKE 1 TABLET BY MOUTH EVERY DAY. Oral Omeprazole 20 MG Capsule Delayed Release Oral Taking clonazePAM 1 MG Tablet 1 tablet Orally Once a day, Notes: Jeremiah-MJTaking Premarin 0.625 MG/GM Cream 1 gram Vaginal Twice a weekTaking Vitamin B-12 1000 MCG Tablet TAKE 1 TABLET BY MOUTH DAILY Oral Taking Vitamin D3 50 MCG (1999 UT) Capsule Oral Taking Mirtazapine 7.5 MG Tablet Oral Taking Propranolol HCl 10 MG Tablet Oral Taking Albuterol Sulfate HFA 108 (90 Base) MCG/ACT Aerosol Solution Inhalation Taking Lisinopril 5 MG Tablet TAKE 1 TABLET BY MOUTH EVERY DAY. Oral Taking Omeprazole 20 MG Capsule Delayed Release Oral Not-TakingLidocaine HCl 2 % Gel 1 application to affected area as needed Externally Three times a dayFlonase Allergy Relief Not-Taking Lidocaine HCl 2 % Gel 1 application to affected area as needed Externally Three times a dayNot-Taking Flonase Allergy Relief DiscontinuedVitamin D 2000 UNIT Tablet Orally Readi-Cat 2 2 % Suspension DRINK 1ST BOTTLE [address] DRINK 2ND BOTTLE 1.[address] Oral valACYclovir HCl 1 GM Tablet 1 tablet Orally qdCeleXA 1 tablet Orally Once a day, Notes: 30MGLidocaine 5 % Ointment 1 application to affected area as needed Externally Three times a day as neededValtrex 500 MG Tablet 1 tablet Orally TWICE DAILYAspirin EC 81MG 30 1 ORAL daily, Notes: Jeremiah-MJLaMICtal , Notes: 75MGMedication List reviewed and reconciled with the patientDiscontinued Vitamin D 2000 UNIT Tablet Orally Discontinued Readi-Cat 2 2 % Suspension DRINK 1ST BOTTLE [address] DRINK 2ND BOTTLE 1.[address] Oral Discontinued valACYclovir HCl 1 GM Tablet 1 tablet Orally qdDiscontinued CeleXA 1 tablet Orally Once a day, Notes: 30MGDiscontinued Lidocaine 5 % Ointment 1 application to affected area as needed Externally Three times a day as neededDiscontinued Valtrex 500 MG Tablet 1 tablet Orally TWICE DAILYDiscontinued Aspirin EC 81MG 30 1 ORAL daily, Notes: Jeremiah-MJDiscontinued LaMICtal , Notes: 75MGMedication List reviewed and reconciled with the patient * Allergies:?CODEINE: AllergyM ORPHINE SULFATE: AllergyIVP DYE: AllergyPERCOCET: AllergyDARVON: AllergySulfa Antibiotics: Itching - Allergyno[Allergies Verified] Objective: * Vitals:?Ht: 60.5 in, Wt:171 lbs, BMI:32.84 Index, BP:148/88 mm Hg, Temp:97.3 F. * Examination: ???General Exam: ?CONSTITUTIONAL:?NECK/THYROID:?RESPIRATORY:?Auscultation: clear to auscultation bilaterally, Respiratory Effort: normal.?CARDIOVASCULAR:?Auscultation: regular rate and rhythm.?BREAST, Right:?BREAST, Left:?GASTROINTESTINAL:?MUSCULOSKELETAL:?SKIN:?NEURO/PSYCH:?Genitourinary: ?EXTERNAL GENITALIA:?VAGINA:?BLADDER:?URETHRA:?CERVIX:?UTERUS:?ADNEXA:?ANUS AND PERINEUM:? Assessment: * Assessment: 1.?Encounter for gynecologic al examination (general) (routine) without abnormal findings - Z01.419 (Primary)?2.?Encounter for screening mammogram for malignant neoplasm of breast - Z12.31?3.?Other specified disorders of bone density and structure, multiple sites - M85.89?4.?Unspecified ovarian cyst, right side - N83.201? Plan: * Treatment: 2.?Encounter for screening m ammogram for malignant neoplasm of breast?Imaging: MM Digital Mammo Screening Notes: REGULAR MAMMOGRAMS AND SBE'S WERE RECOMMENDED.?? 3.?Other specified disorders of bone density and structure, multiple sites?Imaging: BONE DENSITY Notes: DISCUSSED HER LAST BMD IN 2018 AND OSTEOPENIA AND ITS IMPACT ON HER HEALTH. ADEQUATE CALCIUM AND VIT D. WEIGHT BEARING EXERCISES. REPEAT HER BMD THIS YEAR.??4.?Unspecified ovarian cyst, right side?LAB: CANC ANT-125 ?LAB: CEA MONOCLONAL ?LAB: INHIBIN B ?LAB: LDH Notes: DISCUSSED FINDINGS ON PELVIC EXAM AND ON PELVIC ULTRASOUND DONE JUST NOW. SHE HAS A RIGHT ADNEXAL MASS THAT HAS INCREASED IN SIZE SLIGHTLY AND IS NOT CYSTIC. DISCUSSED POSSIBLE DIAGNOSES INCLUDING POSSIBILITY OF OVARIAN MALIGNANCY. TUMOR MARKERS WERE ORDERED. REFER TO SPORTS EDITOR ONCOLOGY.?? * Imaging:? * ?Imaging: MAMMOGRAM, SCR EENING * Procedure Codes:? * Preventive Medicine:? ??YOUR PREVENTIVE WELLNESS PLAN:?Osteoporosis prevention?Calcium, D, strength training.?Breast Cancer Screening (Mammogram):?annually.?Cervical Cancer Screening (Pap Smear):?q 3 years with HPV screen.?Colorectal Cancer Screening:?q 10 years.? * Follow Up:?1 Year or prn * Images: Billing Information: * Visit Code:? [id number] Preventive Care Est Pt. Age 65 and over. * Procedure Codes:? * Sign off status: Completed true * Appointment Provider:?Joan Smith M.D. Date:?10/12/2023 Generated for Arnold kent/Beronica/Cara on:?12/08/2024 07:02 PM EST History and Physical Notes * HPI (History of Present Illness) Category Sub-Category Detail Notes Category Not es New/Follow-up Patient Consult S/P VAGINAL HYSTERECTOMY AT AGE 34 FOR BLEEDING FROM FIBROIDS. PELVIC ULTRASOUND DONE IN JUN 2019 FOR PAINS SHOWED A 3.9 X 3.1 X 3.0 CM RIGHT OVARY WITH A 2.6 X 2.6 X 2.2 SIMPLE CYST. SHE HAD A CT SCAN OF THE ABDOMEN AND PELVIS IN JUL 2019 FOR LEFT SIDED ABDOMINAL PAINS. THIS SHOWED DIVERTICULITIS OF THE DESCENDING COLON. AN INCIDENTAL FINDINGS WAS A 2.5 X 3.5 X 2.2 CM SOFT TISSUE DENSITY ON THE RIGHT ADENEXAL AREA THAT WAS THOUGHT LIKELY TO BE THE OVARY. WHEN SHE COMPLAINED OF ABDOMINAL PAINS AGAIN IN 2022, DR KOLB (SURGEON) ORDERED ANOTHER CT SCAN AND THIS SHOWED A SOFT TISSUE DENSITY IN THE RIGHT PELVIS ADJACENT TO THE RIGHT OVARY MEASURING 4.5 X 3.8 CM. THIS HAD INCREASED IN SIZE. PELVIC ULTRASOUND DONE AT OUR OFFICE TODAY SHOWED A SOFT TISSUE MASS ON THER RIGHT ADNEXAL AREA MEASURING 4.3 X 4.0 S 3.6 CM. THIS COULD NOT BE FROM THE OVARY. HER LAST MAMMOGRAM DONE IN JUN 2022 SHOWED BREASTS ARE NOT DENSE AND WAS NORMAL. HER LAST PAP TEST IN 2018 WAS NEGATIVE AND HPV NEGATIVE. SHE HAS NO HX OF ABNORMAL PAP TESTS. HER LAST BMD IN 2018 SHOWED OSTEOPENIA WITH T-SCORE OF -2.0 AT THE SPINE. FRAX=6.6%/0.6%. SHE HAD A COLONOSCOPY DONE IN 2020. MODERNA X 2. Annual General Health Maintenance: Current breast complaints:: no breast pain, mass, discharge, or skin changes Urinary problems:: patient r eportsharlene no urinary health problems or bowel health problems Calcium intake:: takes adequ ate calcium via diet and supplementation Significant SPORTS EDITOR problems:: n o significant community health consultant symptoms or problems Examination Category Sub-Category Detail Notes Category Not es General Exam CONSTITUTIONAL: General Appearan ce:: alert, in no acute distress, normal, well nourished NECK/THYROID: Thyroid:: normal size and shape Inspection/Palpation:: normal RESPIRATORY: Auscultation: clear to auscultation bilaterally, Respiratory Effort: normal CARDIOVASCULAR: Auscultation: regula r rate and rhythm GASTROINTESTINAL: Hernias:: no hernias present, no inguinal adenopathy Liver and Spleen:: normal Abdomen:: no masses, nontender, nondiste nded MUSCULOSKELETAL: Inspection/Palpation:: no clubb ing, cyanosis, or edema SKIN: Skin:: normal NEURO/PSYCH: Mood/Affect:: normal Orientation:: time , place, person BREAST, Right: Inspection/Palpation :: no discharge, no masses present, no nipple retraction, no skin changes, no skin dimpling, no tenderness, no lymphadenopathy, no axillary mass, no axillary tenderness BREAST, Left: Inspection/Palpation :: no discharge, no masses present, no nipple retraction, no skin changes, no skin dimpling, no tenderness, no lymphadenopathy, no axillary mass, no axillary tenderness Genitourinary EXTERNAL GENITALIA: External Genitalia:: nor mal, no lesions VAGINA: Vagina:: normal appe arance, no abnormal discharge, no lesions BLADDER: Bladder:: no mass, nontender URETHRA: Urethra:: no erythem a or lesions present CERVIX: Cervix:: surgically absent UTERUS: Uterus:: surgically absent ADNEXA: Adnexa:: NONTENDER FIRM M ASS ON THE RIGHT ADNEXAL AREA ANUS AND PERINEUM: Anus/Perineum:: visually norm al
--- OUTSIDE RECORDS SUMMARY | 2024-12-08 19:02 | XMS_ITS ---
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 :1960???Age:64 Y???Sex:Female D ate:11/26/2024 Address:[address] [place] [address] [address], [id number] Pcp:RACHEL ARROYO NP Subjective: * Chief Complaints: * ???1. 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 * Medical History:? Objective: * Vitals:? Assessment: Plan: * Treatment: * Images: Billing Information: * Visit Code:? * Procedure Codes:? * Electronic signature of Saul Smith MD on 12/08/2024 at 07:01 PM EST Sign off status: Pending * Appointment Provider:?Joan Smith M.D. Date:?11/26/2024 Generated for Arnold kent/Beronica/Cara on:?12/08/2024 07:01 PM EST
== END 2024-12-08 15:04 | disposition home or self-care (01) ==
PROVIDERS: PCP Internal Medicine; Visit Provider Internal Medicine Hypertension Specialist
DX: I95.1 Orthostatic hypotension (principal); I10 Essential (primary) hypertension
CPT/HCPCS: 99214

== ENCOUNTER → 2024-12-08 14:33 | Outpatient (BNVA) | payer OTHER, SELFPAY | PROVIDERS: PCP Internal Medicine; Visit Provider Internal Medicine Hypertension Specialist | DX: I10 Essential (primary) hypertension (principal); I95.1 Orthostatic hypotension | CPT/HCPCS: 99212 ==

== ENCOUNTER 2025-06-11 10:58 | Outpatient (AMB) | payer OTHER, SELFPAY ==
--- NOTE | 2025-06-11 10:58 | HO.NEPHOV_ITS ---
Vital Signs 06/11/25 11:05 Height 5 ft Weight 151 lb 6 oz BMI 29.6 BP 115/60 Blood Pressure Location Lt brachial Position Sitting Pulse 67 Pulse Source Pulse Oximeter Pulse Oximetry (%) 96 Oxygen Delivery Method Room Air Intake Visit Reasons: Hypertension/ Conf Research Librarian Required: No Accompanied by: Self / Same As Patient Allergies acetaminophen (From Percocet) Allergy (Mild, Verified 06/11/25 11:06) Unknown codeine Allergy (Mild, Verified 06/11/25 11:06) Unknown hydrochlorothiazide Allergy (Mild, Verified 06/11/25 11:06) Unknown morphine Allergy (Mild, Verified 06/11/25 11:06) Unknown oxycodone (From Percocet) Allergy (Mild, Verified 06/11/25 11:06) Unknown IVP contrast dye Allergy (Mild, Uncoded 03/03/24 15:08) Unknown sulfa Drugs Allergy (Mild, Uncoded 03/03/24 15:08) Unknown Medication List - Last Reconciled 06/11/25 by Zeus Lawson MD albuterol sulfate 90 mcg/actuation inhalation cholecalciferol (vitamin D3) 50 mcg PO DAILY clonazepam 1 mg PO BID cyanocobalamin (vitamin B-12) 1,000 mcg PO DAILY famotidine 20 mg PO BID PRN fluticasone propionate 50 mcg/actuation 1 spray intranasal DAILY lisinopril 10 mg (2 x 5 mg) PO DAILY propranolol 10 mg PO BID PRN valacyclovir 500 mg PO DAILY PRN Do you need a note to return to daycare/school/sports/work: No HPI Comments Details: Tanya is a pleasant 63-year-old man with a history of labile hypertension. Up until 2019 she was doing pretty well with respect to her blood pressure. In 2019 she had a syncopal episode and she was found to have orthostatic hypotension. She was admitted to a hospital in [place] and underwent tilt-table test. Due to orthostatic hypotension she was given midodrine. Two years later the blood pressure was rather elevated therefore she discontinued the midodrine. She is currently on lisinopril 5 mg. She has been monitoring of blood pressure at home Blood pressure has been rather erratic. She does have some decrease in blood pressure postprandially. She underwent cardiac workup. She is waiting for a 24 hour Holter monitor results. She underwent a 24 hour ambulatory blood pressure monitoring. The nocturnal readings for excellent. She uses a CPAP machine. Daytime readings were elevated consistently. 06/10 Home BP aceptable She monitors her BP and takes Lisinopril accordingly REcent Holter was abnormal per patient. She has > 60 PACs Has appointment with Dysautonomia clinic in May of 2025 ! Lost 6 lbs with Wegovy 12/08/24 Lost 20 lbs with Wegovy Off Wegovy now Monitoring BP at home Takes Lisinopril 5 to 10 mg based on BP 06/11/2025. She has been monitoring her blood pressure at home. She had Wegovy and had skin reaction. She is off Wegovy. Seen in [place]. Underwent no biopsy. Results are pending. [facility] Medical History Syncope Spinal stenosis Singers' nodes PTSD (post-traumatic stress disorder) Osteopenia GERD (gastroesophageal reflux disease) Essential (primary) hypertension Depressive disorder COPD (chronic obstructive pulmonary disease) Anxiety Anemia Allergic rhinitis Surgical History History of right oophorectomy (~11/2023) History of tubal ligation History of oral surgery History of hysterectomy History of hernia repair H/O section Family History Mother Stroke Hypertension Father Prostate cancer Heart disease Sister Hypertension Paternal Uncle Diabetes Physical Exam Vital Signs: Last Vital Signs Pulse 67 06/11/25 11:05 BP 115/60 06/11/25 11:05 Pulse Ox 96 06/11/25 11:05 Oxygen Delivery Method Room Air 06/11/25 11:05 BMI result Body Mass Index 29.6 Comfortable Neck supple no JVD. Lungs entry equal no rales. Heart S1-S2 heard no gallop or rub. Abdomen soft nontender. Neuro alert awake oriented. No asterixis. Extremities no edema. Assessment & Plan Assessment & Plan (1) Orthostatic hypotension: Code(s): I95.1 - Orthostatic hypotension Category: Medical (2) HTN (hypertension): Code(s): I10 - Essential (primary) hypertension Category: Medical Plan 63-year-old woman with labile hypertension. Tanya has a h/o orthostatic hypotension with occasional tachycardia. No documented supine hypertension based on 24 hour ABPM. She has autonomic dysfunction. We discussed all orthostatic precautions including had an elevation at 30 degrees, tight stockings and gradual change in posture. Referred to dysautonomia Clinic - appointment Pending in May 2024 No change in meds. She can continue monitoring of blood pressure at home. At her request, referred her to protective services case worker at [facility] - work up in progress. 06/11/25 Continue to monitor blood pressure at home No changes in blood pressure medications. Await workup in [place] pending no biopsy. Coding Level of Care Code Est Pt Level 4 (91272) Diagnoses Orthostatic hypotension I95.1 HTN (hypertension) I10
[2025-06-11 11:05] VITALS: BP 115/60; PULSE 67; O2SAT 96; BMI 29.6
--- OUTSIDE RECORDS SUMMARY | 2025-06-11 11:49 | XMS_ITS | Encounter Summary ---
Author Organization [facility] Address [address] [place] [address] Phone Care Team Providers Care Cigarette Packer Name Role Phone Mark Anthony Villarreal DO Primary Care Provider Destiney Hernadez Primary Care Provider [phone] Encounter Details Date Type Department Care Team (Late st Contact Info) Description 08/01/2023 Procedure Pass [facility] Endoscopy Admitting Dept Virtual Department [address] [place] [address] Social History Tobacco Use Types Packs/Day Years Used Date Smoking Tobacco: Every Day Cigarettes 0.5 52.6 Started: 1973 Smokeless Tobacco: Never Alcohol Use Standard Drinks/Week Comments Yes 0 (1 standard drink = 0.6 oz pur e alcohol) 3 drinks 3x week Education Answer Date Recorded Are you interested in more education? Not on bety e 03/09/2023 Are you concerned about learning? Not on file 03/09/2023 No 03/09/2023 No 03/09/2023 Digital Access Answer Date Recorded No 04/09/2023 No 04/09/2023 Reliable internet access at home? Not on file 04/09/2023 Device with a working camera? Not on file Intimate Partner Violence Answer Date R ecorded Are you denied basic needs s uch as food, clothing, or medical care? No 08/01/2023 In the past 12 months have y ou been in a relationship with a person who hurts, threatens, or tries to control you? No 08/01/2023 Are you denied basic needs s uch as food, clothing, or medical care? No 08/01/2023 In the past 12 months have y ou been in a relationship with a person who hurts, threatens, or tries to control you? No 08/01/2023 Comments No Sex and Gender Information Value Date Recorded Sex Assigned at Not on file Legal Sex Female 10:34 PM EDT Gender Identity Not on file Sexual Orientation Not on file documented as of this encounter Plan of Treatment Upcoming Encounters Date Type Department Care Team (Latest Contact Info) Description 06/23/2025 Procedure Pass [facility] End[facility] Admitting Dept Virtual Department [address] [place] [address] 06/23/2025 1:15 PM EDT Hospital Encounter [facility] Admitting Dept Virtual Department [address] [place] [address] Pan Rogers MD [address] [place] [address] 06/23/2025 1:15 PM EDT - 06/23/2025 1:30 PM EDT Surgery [facility] Admitting Dept Virtual Department [address] [place] [address] Pan Rogers MD [address] [place] [address] COLONOSCOPY 06/25/2025 3:00 PM EDT Telemedicine [facility] [address] [place] [address] Nova Hayden, [facility] [address], [address] [place] [address] [email or web address] 07/29/2025 11:00 AM EDT Office Visit [facility] [address], [address] [place] [address] Kulwinder Sam MD [address] [place] [address] 02/08/2026 2:00 PM EDT Office Visit [facility] [address] [place] [address] Destiney Hernadez [address] [place] [address] [email or web address] 02/12/2026 12:20 PM EDT Office Visit [facility] [address], [address] [place] [address] Jack Tomlinson MD, [place] [address], [address] [place] [address] [email or web address] Scheduled Procedures Name Priority Associated Diagnoses Date/Ti me COLONOSCOPY Constipation, unspecified constipation type Change in bowel habits 06/23/2025 1:15 PM EDT documented as of this encounter Visit Diagnoses Not on filedocumented in this encounter Care Teams Cigarette Packer Relationship Specialty Start Date End Date TcHyacinth malloynoDO [address] [place] [address] [address] [place] [address] PCP - General Internal Medicine 12/01/22 03/05/25 Destiney Hernadez [address] [place] [address], [address] [place] [address] PCP - General Family Medicine 03/06/25 documented as of this encounter Additional Source Comments The information contained in this document represents components of the legal health record. It is not the complete legal health record.[facility]
--- OUTSIDE RECORDS SUMMARY | 2025-06-11 11:49 | XMS_ITS | Clinical Summary ---
Author Organization [facility] Address [address] [place] [address] [place] [address] Phone Care Team Providers Care Dowel Inspector Name Role Phone Ernestine De Jesus Primary Care Provider [phone] Allergies Active Allergy Reactions Criticality Noted Date [...] 06/14/2023 Spinal stenosis 06/14/2023 06/14/2023 06/14/2023 Immunizations Immunization Administration Dates Next Due Pneumococcal Polysaccharide 12/29/2012 [...] Colorectal Cancer Screening: Sigmoidoscopy 2008 Pneumococcal Vaccine: 50+ Ye ars (2 of 2 - PCV) 12/29/2013 12/29/2012 Influenza Vaccine (#1) 2025 Pneumococcal Vaccine: Peds ( 0 to 5 Years) and At-Risk Patients (6 to 49 Years) Discontinued 12/29/2012 Hepatitis B Vaccine Aged Out No longe r eligible based on patient's age to complete this topic Insurance [facility] ([id number]) [place] [id number] [facility] ([id number]) Care Teams Dowel Inspector Relationship Specialty Start Date End Date Ernestine De Jesus [address] [place] [address] PCP - General 06/18/23
--- OUTSIDE RECORDS SUMMARY | 2025-06-11 11:49 | XMS_ITS | Patient Health Record ---
Author Organization [facility] Address [address] [place] [address] Care Team Providers Care Research Program Manager Name Role Phone YARY MCCLAIN Primary Care Provider Unavailabl e Allergies Allergen (clinical drug ingredient) Drug/Non Drug [...] (2000 UT) 1 capsule Orally Once a day; Duration: 30 day(s) Not-Taking clonazePAM 2 MG 1 tablet at bedtime Orally Once a day Active valACYclovir HCl 500 MG 1 tablet Orally as needed Active Social History Tobacco Use: Social History [...] an other tobacco user? No V apor Problems Problem Type SNOMED Code ICD Code Onset Dates Problem Status W/U Status Risk Notes Problem Stress and adjustment reaction (disorder) (009878361) Reaction to severe stress, unspecified (F43.9) Active confirmed Problem Diverticula of intestine (50513548) Diverticulosis of intestine, part unspecified, without perforation or abscess without bleeding (K57.90) Active confirmed Problem Constipation (27394004) Constipation, unspecified (K59.00) Active confirmed Problem Hemorrhage of rectum and anus (489684143) Hemorrhage of anus and rectum (K62.5) Active confirmed Problem Abdominal pain (24891461) Unspecified abdominal pain (R10.9) Active confirmed Plan Of Treatment No Information Insurance Providers Payer Name Payer Address Payer Phone Subscriber Number Group Number Insured Name Patient Relationship to Insured Coverage Start Date Coverage End Date SamEnrico O [address] [address] [place], [place] [id number] Tanya rDake Self - patient is the insured Medical (General) History Medical History History ICD Code Myokymia Ptsd [...] Reason Date(Month/Year) Psych Episode 2010 Psych Episode 2015 Syncope 2019
--- OUTSIDE RECORDS SUMMARY | 2025-06-11 11:49 | XMS_ITS | Patient Health Record ---
Author Organization [facility] Address [address] [place] [address] Care Team Providers Care Records Analyst Name Role Phone CASANDRA MAYNARD Primary Care Provider Joan Jaime Unavailable [phone] Allergies Allergen (clinical drug ingredient) Drug/Non Drug [...] Active Results Component Value Reference Range Notes Urinalysis Reviewed date:04/23/2025 04:14:40 PM Interpretation: Performing Lab: Notes/Report: PH 5.0 PROTEIN trace WBC smal GLUCOSE neg BLOOD neg Reason For Referral No Information Medications Medication SIG (Take, Route, Frequency, Duration) Notes Start Date End Date Status Vitamin D3 50 MCG (1999) Oral; Duration: 90 Active Mirtazapine 7.5 MG Oral; Duration: 30 Active Propranolol HCl 10 MG Oral; Duration: 90 Active Flonase Allergy Relief Not-Taking clonazePAM 1 MG 1 tablet Orally Once a day Jeremiah-MJ 07/30/2013 Active Vitamin B-12 1000 MCG TAKE 1 TABLET BY OUTH DAILY Oral; Duration: 30 Active metroNIDAZOLE 0.75 % 1 applicatorful at bedtime Vaginal ONCE A NIGHT; Duration: 5 days 04/23/2025 Active Albuterol Sulfate HFA 108 (90 Base) MCG/ACT Inhalation; Duration: 50 Active Lisinopril 5 MG TAKE 1 TABLET BY EVERY DAY. Oral; Duration: 90 Active Zepbound 7.5 MG/0.5ML 0.5 mL Subcutaneous Active Famotidine 10 MG 1 tablet as needed Orally Twice a day Active Lidocaine HCl 2 % 1 application to affected area as needed Externally Three times a day; Duration: 10 days 08/21/2018 Not-Taking Social History Tobacco Use: Social History Observation Description Date Details (start date - stop date) Current Smoker NA - NA Sexual History Question Answer Notes Had sex in the past 12 months (vaginal, oral, or anal)? Yes with Men only Prevention strategies discussed: Condoms AUDIT-C (Standard) Question Answer Notes Did you have a drink contain ing alcohol in the past year? Yes How often did you have a dri nk containing alcohol in the past year? Daily or almost daily (4 points) How many drinks did you have on a typical day when you were drinking in the past year? 1 or 2 drinks (0 point) How often did you have six o r more drinks on one occasion in the past year? Never (0 point) Points 4 Interpretation Positive Tobacco Control (Standard) Question Answer Notes Tobacco use: Current smoker How often do you smoke cigarettes? Every day How many cigarettes a day do you smoke? 6-10 Problems Problem Type SNOMED Code ICD Code Onset Dates Problem Status W/U Status Risk Notes Problem Herniation of rectum into vagina (139427015) Rectocele (N81.6) Active confirmed Problem Essential hypertension (46207839) Essential (primary) hypertension (I10) Active confirmed Problem Herpes simplex viral infection (77355959) Herpesviral infection, unspecified (B00.9) Active confirmed Problem Recurrent depression (122418577) Other recurrent depressive disorders (F33.8) Active confirmed Problem Post-traumatic stress disorder (71477351) Post-traumatic stress disorder, unspecified (F43.10) Active confirmed Problem Gastro-esophageal reflux disease without esophagitis (708508392) Gastro-esophageal reflux disease without esophagitis (K21.9) Active confirmed Problem Menopause (173610979) Menopausal and female climacteric states (N95.1) Active confirmed Problem Herpetic vulvovaginitis (93986061) Herpetic vulvovaginitis (054.11) Active confirmed Problem Depressive disorder (95029320) Depressive disorder, not elsewhere classified (311) Active confirmed Major Problem Menopausal symptom (76185677) Symptomatic menopausal or female climacteric states (627.2) Active confirmed Major Vital Signs Temperature 97.8 degrees Fahrenheit 04/23/2025 Blood pressure diastolic 80 mm Hg 04/23/2025 Height 60.5 in 04/23/2025 Blood pressure systolic 128 mm Hg 04/23/2025 Weight 150 lbs 04/23/2025 BMI 28.81 kg/m2 04/23/2025 Encounters Encounter Location Date Provider Diagnosis [address] [place] [address] 04/23/2025 Joan Smith Encounter for gynecological examination (general) (routine) without abnormal findings Z01.419 ; Encounter for screening mammogram for malignant neoplasm of breast Z12.31 ; Other specified disorders of bone density and structure, multiple sites M85.89 ; Acute vaginitis N76.0 and Rectocele N81.6 Assessments Encounter Date Diagnosis (ICD Code) Assessment Notes Treatment Notes Treatment Clinical Notes Section Notes 04/23/2025 Encounter for gynecological examination (general) (routine) without abnormal findings (ICD-10 - Z01.419) NO PAP TESTS. 04/23/2025 Encounter for screening mammogram for malignant neoplasm of breast (ICD-10 - Z12.31) REGULAR MAMMOGRAMS AND SBE'S WERE RECOMMENDED. 04/23/2025 Other specified disorders of bone density and structure, multiple sites (ICD-10 - M85.89) DISCUSSED HER LAST BMD AND OSTEOPENIA AND ITS IMPACT ON HER HEALTH. ADEQUATE CALCIUM AND VIT D. WEIGHT BEARING EXERCISES. REPEAT BMD IN 2025. 04/23/2025 Acute vaginitis (ICD-10 - N76.0) DISCUSSED FINDINGS, DX AND TX OPTIONS. RX AND INSTRUCTIONS FOR METRONIDAZOLE WERE GIVEN. RECURRENT NATURE OF THE CONDITION WAS EMPHASIZED. 04/23/2025 Rectocele (ICD-10 - N81.6) REASSURED PAT THAT I DID NOT NOTE ANY RECTOCELE. HAVE ADVISED HER TO SEE DR FRY, A UROGYNECOLOGIST FOR FURTHER EVALUATION. THE FACT THAT SHE NEEDS TO PUSH THE POSTERIOR VAGINA TO HAVE A COMPLETE BOWEL MOVEMENT POINTS TO A RECTOCELE THAT I JUST DO NOT SEE. Plan Of Treatment Pending Test Test Name Order Date MAMMOGRAM, SCREENING 02/19/2015 MAMMOGRAM, SCREENING 10/12/2023 MAMMOGRAM, SCREENING 04/23/2025 Urinalysis 05/03/2018 INHIBIN B 10/12/2023 THIN PREP,HPV,STEPHEN IF HPV+/CYT-,CT/GC(>2 9YR)(SCRN) 05/03/2018 BONE DENSITY 10/12/2023 MM Digital Mammo Screening 04/23/2025 MM Digital Mammo Screening 05/03/2018 MM Digital Mammo Screening 10/12/2023 Next Appt Details Provider Name:Joan King [email or web address], 05/05/2026 01:00:00 PM, [address], [address], [place], [address], Insurance Providers Payer Name Payer Address Payer Phone Subscriber Number Group Number Insured Name Patient Relationship to Insured Coverage Start Date Coverage End Date [facility] [address] [place] [id number] ONEIDA SALGUERO Self - patient is the insured Medical (General) History Medical History History ICD Code Herpetic vulvovaginitis 054.11 Disorder of bone density and structure, unspecified M85.9 Essential (primary) hypertension I10 Gastro-esophageal reflux disease without esophagitis K21.9 Post-traumatic stress disorder, unspecif ied F43.10 Other recurrent depressive disorders F33 .8 Menopausal and female climacteric states N95.1 Herpesviral infection, unspecified B00.9 Unspecified ovarian cyst, right side N83 .201 Surgical History Surgery Date(Month/Year) Bilateral Tubal Ligation 1988 Breast cyst aspiration C/S x3 Colonoscopy D+C Total Hyst for fibroids. Ovaries remain. 1994 Dental surgery Herniorrhaphy 2012 Hospitalization History Reason Date(Month/Year) See Surgical Hx Hospitilized x 3 Days for Illness Psych Felipe 3 Days 2015
--- OUTSIDE RECORDS SUMMARY | 2025-06-11 11:49 | XMS_ITS | Patient Health Record ---
Author Organization [facility] Address [address] [place] [address] Care Team Providers Care Freelance Director Name Role Phone JAYDEN BLEDSOE Primary Care Provider [phone] Allergies Allergen (clinical drug ingredient) Drug/Non Drug [...] with withdrawal (F17.203) Active confirmed Problem Constipation (96904248) Constipation, unspecified (K59.00) Active confirmed Problem Vitamin D deficiency (02620846) Vitamin D deficiency (E55.9) Active confirmed Problem Obesity (067272531) Obesity (E66.9) Active confirmed Problem Panic disorder (436744459) Panic disorder (F41.0) Active confirmed Problem Asthma without status asthmaticus (29145620) Asthma, unspecified asthma severity, unspecified whether complicated, unspecified whether persistent (J45.909) Active confirmed Problem Smoking (28894719) Smoking (F17.200) Active confirmed Plan Of Treatment [...]
--- OUTSIDE RECORDS SUMMARY | 2025-06-11 11:50 | XMS_ITS | Patient Health Record ---
Author Organization [facility] Address [address] [place] [address] Care Team Providers Care Clinical Manager Home Care Name Role Phone DIOR NUNN Primary Care Provider [phone] Reason For Referral No Information Plan Of Treatment No Information Insurance Providers Payer Name Payer Address Payer Phone Subscriber Number Group Number Insured Name Patient Relationship to Insured Coverage Start Date Coverage End Date [facility] OUT OF AREA [address] [place] [id number] ONEIDA SALGUERO Self - patient is the insured MEDICARE [address] [facility] [place] [address] [phone] [id number] ONEIDA SALGUERO Self - patient is the insured
== END 2025-06-11 11:27 | disposition home or self-care (01) ==
LOC: HO.HKA 10:58
PROVIDERS: PCP Internal Medicine; Visit Provider Internal Medicine Hypertension Specialist
DX: I95.1 Orthostatic hypotension (principal); I10 Essential (primary) hypertension
CPT/HCPCS: 99214

== ENCOUNTER → 2025-06-11 10:58 | Outpatient (BNVA) | payer OTHER, SELFPAY | PROVIDERS: PCP Internal Medicine; Visit Provider Internal Medicine Hypertension Specialist | DX: I10 Essential (primary) hypertension (principal); I95.1 Orthostatic hypotension | CPT/HCPCS: 99212 ==

== ENCOUNTER 2025-06-30 12:46 | Outpatient (AMB) | payer OTHER, SELFPAY ==
[2025-06-30 12:49] VITALS: BP 144/65; PULSE 65
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
--- OUTSIDE RECORDS SUMMARY | 2025-06-30 13:56 | XMS_ITS | Clinical Summary ---
Author Organization [facility] Address [address] [place] [address] [place] [address] Phone Care Team Providers Care Jewel Supervisor Name Role Phone Ernestine De Jesus Primary Care Provider [phone] Allergies Active Allergy Reactions Criticality Noted Date [...] patient's age to complete this topic Insurance [facility] ([id number]) BRIAN ZHONG [id number] [facility] ([id number]) Care Teams Jewel Supervisor Relationship Specialty Start Date End Date Ernestine De Jesus [address] [place] [address] PCP - General 06/18/23
--- OUTSIDE RECORDS SUMMARY | 2025-06-30 13:56 | XMS_ITS | Encounter Summary ---
Author Organization [facility] Address [address] [place] [address] Phone Care Team Providers Care Vulcanizer Name Role Phone Mark Anthony Villarreal DO Primary Care Provider [phone] Destiney Hernadez Primary Care Provider [phone] Encounter Details Date Type Department Care Team (Late st Contact Info) Description 08/01/2023 Procedure Pass [facility] Endoscopy Admitting Dept Virtual Department [address] [place] [address] Social History Tobacco Use Types Packs/Day Years [...] Upcoming Encounters Date Type Department Care Team (Late st Contact Info) Description 07/29/2025 11:00 AM EDT Office Visit [facility] [address] [place] [address] [address]rd Floor, [address] [place] [address] Kulwinder Sam MD [address] [place] [address] 02/08/2026 2:00 PM EDT Office Visit [facility] [address] [place] [address] Destiney Hernadez [address] [place] [address], [address] [place] [address] [email or web address] 02/12/2026 12:20 PM EDT Office Visit [facility] [address] [place] [address] [address]rd [facility], [address] [place] [address] Jack Tomlinson MD, [place] [address] [facility], [address] [place] [address] documented as of this encounter Visit Diagnoses Not on filedocumented in this encounter Care Teams Vulcanizer Relationship Specialty Start Date End Date Mark Anthony Villarreal DO [address] [place] [address] [address] [place] [address] PCP - General Internal Medicine 12/01/22 03/05/25 Destiney Hernadez [address] [place] [address], [address] [place] [address] [email or web address] PCP - General Family Medicine 03/06/25 documented as of this encounter Additional Source Comments The information contained in this document represents components of the legal health record. It is not the complete legal health record.[facility]
== END 2025-06-30 13:20 | disposition home or self-care (01) ==
LOC: HO.HSM 12:47
PROVIDERS: PCP Internal Medicine; Referring Provider Internal Medicine; Visit Provider Registered Nurse
DX: G40.909 Epilepsy, unspecified, not intractable, without status epilepticus (principal); G25.3 Myoclonus; R55 Syncope and collapse
CPT/HCPCS: 99214

== ENCOUNTER → 2025-06-30 12:46 | Outpatient (BNVA) | payer OTHER, SELFPAY | PROVIDERS: PCP Internal Medicine; Referring Provider Internal Medicine; Visit Provider Registered Nurse | DX: R55 Syncope and collapse (principal); G25.3 Myoclonus; F32.A Depression, unspecified; F41.9 Anxiety disorder, unspecified | CPT/HCPCS: 99212 ==

== ENCOUNTER 2025-08-11 11:32 | Outpatient (AMB) | payer OTHER, SELFPAY ==
--- OUTSIDE RECORDS SUMMARY | 2024-11-26 09:00 | XMS_ITS ---
Author Organization [employer] Address [address] [facility] [address] [place] [address] Care Team Providers Care Modular Set Crew Member Name Role Phone CASANDRA MAYNARD Primary Care Provider Joan Jaime Unavailable [phone] REASON FOR VISIT Annual NEPHROLOGIST Physical Encounters Encounter Location Date Provider Diagnosis [facility] [employer] [address] [place] [address] 11/26/2024 Joan Smith Plan Of Treatment Next Appt Details Provider Name:Joan paris, 05/05/2026 01:00:00 PM, [address], [address], [place], [address], Progress Notes * ONEIDA SALGUERODOB:1960 (64 yo F)Acc No.[id number]:11/26/2024 PROGRESS NOTES Patient: Melissa MONTES DE OCAONEIDA Appointment Provider: To Smith M.D. :1960 A ge:64 Y S ex:Female Date:11/26/2024 Address:[address], [id number] Pcp:CASANDRA PEREZ Subjective: * Chief Complaints: * 1 . Annual NEPHROLOGIST Physical. * Medical History: Objective: * Vitals: Assessment: Plan: * Treatment: * Images: Billing Information: * Visit Code: * Procedure Codes: * Electronic signature of Saul Smith MD on 08/11/2025 at 01:00 PM EDT Sign off status: Pending * Appointment Provider: To Smith M.D. Date: 0 11/26/2024 Generated for Arnold kent/Beronica/Cara on: 0 08/11/2025 01:00 PM EDT
--- OUTSIDE RECORDS SUMMARY | 2025-02-09 09:00 | XMS_ITS ---
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 :1960 A ge:64 Y S ex:Female Date:02/09/2025 Address:[address], [id number] Pcp:CASANDRA PEREZ Subjective: * Chief Complaints: * 1 . 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 * Medical History: Objective: * Vitals: Assessment: Plan: * Treatment: * Images: Billing Information: * Visit Code: * Procedure Codes: * Electronic signature of Saul Smith MD on 08/11/2025 at 01:01 PM EDT Sign off status: Pending * Appointment Provider: To Smith M.D. Date: 0 02/09/2025 Generated for Arnold kent/Beronica/Cara on: 0 08/11/2025 01:01 PM EDT
--- OUTSIDE RECORDS SUMMARY | 2025-08-07 10:45 | XMS_ITS | Encounter Summary ---
Author Organization [facility] Address [address] [place] [address] Phone Care Team Providers Care Inside Account Executive Name Role Phone Destiney Hernadez Primary Care Provider [phone] Reason for Referral * Consultation (Within 2 weeks) - New Request Specialty Diagnoses / Procedures Referred By Nilda t Referred To Contact Diagnoses Skin lesion Destiney Hernadez [address] [place] [address], [address] [place] [address] Phone: tel: fax: [email or web address] Unknown, Unknown, Referral ID Status Reason Start Date Expiration Date V isits Requested Visits Authorized [id number] New Request 08/07/2025 08/08/2026 1 1 Reason for Visit * Reason Comments Skin Problem Spot on face, as wel l as inner thigh. Encounter Details Date Type Department Care Team (Latest Contact Info) Description 08/07/2025 10:45 AM EDT Office Visit [facility] [address] [place] [address] Destiney Hernadez [address] [facility] [place], [place] [id number] [email or web address] Skin lesion; Primary hypertension Social History Tobacco Use Types Packs/Day Years Used Date Smoking Tobacco: Every Day Cigarettes 0.5 52.7 Started: 1973 Smokeless Tobacco: Never Comments:Plans to cut down miguel a murguia, setting her quit date as 11/23/2023, when she goes into the hospital for surgery. Alcohol Use Standard Drinks/Week Comments Yes 0 (1 standard drink = 0.6 oz pur e alcohol) 3 drinks 3x week Child or Family Care Answer Date Record ed Do you have problems with on e of the following making it difficult for you to work, study, or receive health care? Family care (i.e. spouse, parents, other family) 03/06/2025 Education Answer Date Recorded Are you interested in help w ith more adult education (for example, completing high school, GED, job training, learning the [place] language, technical skills, or developing parenting skills)? No 03/06/2025 Are you concerned about learning? Not on file 03/06/2025 No 03/06/2025 Yes 03/06/2025 Food Answer Date Recorded Within the past 6 months we worried whether our food would run out before we got money to buy more. Never True 03/06/2025 Within the past 6 months the food we bought just didn't last and we didn't have enough money to get more. Never True Residential Stability Answer Date Recor ded What is your housing situation today? I have emery hayes 03/06/2025 How many times have you move d in the past 12 months? Zero (I did not move) 03/06/2025 Paying for Meds Answer Date Recorded Do you have trouble paying for medicines? No 03/06/2025 Paying Utility Bills Answer Date Record ed Do you have trouble paying your heating or elect ricity bill? No 03/06/2025 Transportation Answer Date Recorded Has the lack of transportati on kept you from medical appointments or from getting medications? No 03/06/2025 Digital Access Answer Date Recorded No 03/06/2025 Yes 03/06/2025 Do you have reliable internet access at home? Ye s 03/06/2025 Do you have a device (e.g., phone, tablet, computer) with a working camera? Yes 03/06/2025 Intimate Partner Violence Answer Date R ecorded Are you denied basic needs s uch as food, clothing, or medical care? No 06/25/2025 In the past 12 months have y ou been in a relationship with a person who hurts, threatens, or tries to control you? No 06/25/2025 Are you denied basic needs s uch as food, clothing, or medical care? No 06/25/2025 In the past 12 months have y ou been in a relationship with a person who hurts, threatens, or tries to control you? No 06/25/2025 Comments No Sex and Gender Information Value Date Recorded Sex Assigned at Not on file Legal Sex Female 10:34 PM EDT Gender Identity Not on file Sexual Orientation Not on file documented as of this encounter Last Filed Vital Signs Vital Sign Reading Time Taken Comments Blood Pressure 142/84 08/07/2025 10:40 AM EDT Pulse 53 08/07/2025 10:40 AM EDT Temperature 35.8 C (96.5 F) 08/07/2025 10:40 AM EDT Respiratory Rate - - Oxygen Saturation 96% 08/07/2025 10:40 AM EDT Inhaled Oxygen Concentration - - Weight 71.5 kg (157 lb 9.6 oz) 08/07/2025 10:40 AM EDT Height - - Body Mass Index 30.78 07/30/2025 11:31 AM EDT documented in this encounter Progress Notes * Destiney Hernadez - 08/07/2025 10:45 AM EDT Images from the original note were not included. Patient is a 64 y.o. female presenting today for a follow up. She has a dry patch on her cheek for about a month that has not resolved despite the use of creams.The patch does not itch or hurt, and has not bled. She also has a similar lesion on her thigh that has been present and unchanged for a while. Her blood pressure has been consistently high since discontinuing Zepbound, with readings as high as 189/111 mmHg, prompting her to call shoe ironer. She is currently taking lisinopril 10 mg daily, but her blood pressure does not decrease two hours post-dose. She is dealing with the stress of her sister's stage four non-Hodgkin's lymphoma diagnosis, which has impacted her ability to visit due to her own health issues and medical appointments. She is currently on Zoloft for psychiatric management and has been prescribed melatonin for sleep issues, as sheexperiences difficulty sleeping due to heart palpitations. Review of Systems Negative except as noted in HPI. Physical Exam Skin: Comments: Skin lesion on thigh hyperpigmented irregular mole, measuring 3mm. Lesion on face measures 2mm and is raised and slightly crusted. Assessment/Plan: 1. Skin lesion Assessment & Plan: Multiple skin lesions present without changes or malignancy concern. Transportation and insurance issues may affect dermatology access. - Refer to [facility] for evaluation and potential removal. - Monitor lesions for changes in size, color, or bleeding. - Document and photograph lesions for future comparison. - Consider plastic surgery referral for biopsy if dermatology appointment is delayed. - Discuss transportation options for dermatology visits. Orders: - External Referral to Dermatology ([facility]) 2. Primary hypertension Overview: Sees nephrology. Takes lisinopril 5mg daily, sometimes will use a second dose if blood pressure elevated. Assessment & Plan: Blood pressure remains elevated at 189/111 mmHg on lisinopril 10 mg daily. Coordination with house nurse Dr. Sanches required for management. - Increase lisinopril to 15 mg daily and monitor blood pressure response. - Contact house nurse Dr. Sanches to discuss management and potential medication adjustments. - Advise her to monitor blood pressure and report significant changes or symptoms. Destiney Hernadez documented in this encounter Miscellaneous Notes * Assessment & Plan Note - Destiney Hernadez - 08/07/2025 12:39 PM EDT Associated Problem(s): Hypertension Blood pressure remains elevated at 189/111 mmHg on lisinopril 10 mg daily. Coordination with house nurse Dr. Sanches required for management. - Increase lisinopril to 15 mg daily and monitor blood pressure response. - Contact house nurse Dr. Sanches to discuss management and potential medication adjustments. - Advise her to monitor blood pressure and report significant changes or symptoms. * Assessment & Plan Note - Destiney Hernadez - 08/07/2025 12:38 PM EDT Associated Problem(s): Skin lesion Multiple skin lesions present without changes or malignancy concern. Transportation and insurance issues may affect dermatology access. - Refer to [facility] for evaluation and potential removal. - Monitor lesions for changes in size, color, or bleeding. - Document and photograph lesions for future comparison. - Consider plastic surgery referral for biopsy if dermatology appointment is delayed. - Discuss transportation options for dermatology visits. documented in this encounter Plan of Treatment Upcoming Encounters Date Type Department Care Team (Late st Contact Info) Description 07/20/2025 Procedure Pass [facility] Echo Lab [address] [place] [address] 08/25/2025 10:30 AM EDT Appointment [facility] Echo Lab [address] [place] [address] Radha Amaya DNP [address] [facility], [address] [place] [address] 09/11/2025 2:45 PM EDT Office Visit [facility] [address] [place] [address] Destiney Hernadez [address] [facility] [place] [address] [email or web address] 10/02/2025 11:40 AM EST Office Visit [facility] [address] [place] [address] 3rd Floor, [address] [place] [address] Kulwinder Sam MD [address] [place] [address] 12/23/2025 1:00 PM EST Office Visit [facility] [address] [place], [place] [phone] Unknown, Unknown, Lucita Corrales, VAULT KEEPER [address] [place], [place] [id number] 02/08/2026 2:00 PM EDT Office Visit [facility] [address] [place] [address] Destiney Hernadez [address] [facility] [place] [address] [email or web address] 02/12/2026 12:20 PM EDT Office Visit [facility] [address] Floor, [address] [place] [address] Jack Tomlinsno MD, MS [address] [facility], [address] [place] [address] 04/12/2026 9:00 AM EDT Office Visit [facility] Neurology at [address] [address] [place] [address] [place] [address] [place] [address] [email or web address] Scheduled Referrals Name Type Priority Associated Diagnoses Order Schedule External Referral to Dermatology ([facility]) Outpatient Referral Routine Skin lesion Ordered: 08/07/2025 documented as of this encounter Visit Diagnoses Diagnosis Skin lesion Unspecified disorder of skin and subcutaneous tissue Primary hypertension Unspecified essential hypertension documented in this encounter Additional Health Concerns Assessment Noted Time PHQ-9 Depression Total Score: 8 06/25/20 3:51 PM EDT PHQ-2 Depression Total Score: 5 06/25/20 3:51 PM EDT documented as of this encounter Care Teams Inside Account Executive Relationship Specialty Start Date End Date Destiney Hernadez [address] [facility] [place] [address] PCP - General Family Medicine 03/06/25 documented as of this encounter Additional Source Comments The information contained in this document represents components of the legal health record. It is not the complete legal health record.[facility]
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
--- OUTSIDE RECORDS SUMMARY | 2025-08-11 12:59 | XMS_ITS | Patient Health Record ---
Author Organization [facility] Address [address] [place] [address] Care Team Providers Care Sole Layer Name Role Phone CASANDRA MAYNARD Primary Care Provider Joan Jaime Unavailable [phone] Allergies Allergen (clinical drug ingredient) Drug/Non Drug [...] Notes Problem Herniation of rectum into vagina (382546204) Rectocele (N81.6) Active confirmed Problem Essential hypertension (61010928) Essential (primary) hypertension (I10) Active confirmed Problem Herpes simplex viral infection (79465689) Herpesviral infection, unspecified (B00.9) Active confirmed Problem Recurrent depression (228541171) Other recurrent depressive disorders (F33.8) Active confirmed Problem Post-traumatic stress disorder (05575441) Post-traumatic stress disorder, unspecified (F43.10) Active confirmed Problem Gastro-esophageal reflux disease without esophagitis (916195130) Gastro-esophageal reflux disease without esophagitis (K21.9) Active confirmed Problem Menopause (618853276) Menopausal and female climacteric states (N95.1) Active confirmed Problem Herpetic vulvovaginitis (71343073) Herpetic vulvovaginitis (054.11) Active confirmed Problem Depressive disorder (35821990) Depressive disorder, not elsewhere classified (311) Active confirmed Major Problem Menopausal symptom (65018025) Symptomatic menopausal or female climacteric states (627.2) Active confirmed Major Vital Signs Temperature 97.8 degrees Fahrenheit 04/23/2025 Blood pressure diastolic 80 mm Hg 04/23/2025 Height 60.5 in 04/23/2025 Blood pressure systolic 128 mm Hg 04/23/2025 Weight 150 lbs 04/23/2025 BMI 28.81 kg/m2 04/23/2025 Encounters Encounter Location Date Provider Diagnosis [address] [place] [address] 04/23/2025 Joan Smith Encounter for gynecological examination [...] Name:Joan King [email or web address], 05/05/2026 01:00:00 PM, [address], [address], [place], [address], Insurance Providers Payer Name Payer Address Payer Phone Subscriber Number Group Number Insured Name Patient Relationship to Insured Coverage Start Date Coverage End Date [facility] [address] [place] [id number] ONEIDA SALGUERO Self - patient is the [...]
--- OUTSIDE RECORDS SUMMARY | 2025-08-11 12:59 | XMS_ITS | Encounter Summary ---
Author Organization [facility] Address [address] [place] [address] Phone Care Team Providers Care Crystal Growing Technician Name Role Phone Mark Anthony Villarreal DO Primary Care Provider [phone] Destiney Hernadez Primary Care Provider [phone] Encounter Details Date Type Department Care Team (Late st Contact Info) Description 08/01/2023 Procedure Pass [facility] Endoscopy Admitting Dept Virtual Department [address] [place] [address] Social History Tobacco Use Types Packs/Day Years Used Date Smoking Tobacco: Every Day Cigarettes 0.5 52.7 Started: 1973 Smokeless Tobacco: Never Alcohol Use [...] st Contact Info) Description 07/20/2025 Procedure Pass [facility] Echo Lab [address] [place] [address] 08/25/2025 10:30 AM EDT Appointment [facility] Echo Lab [address] [place] [address] Radha Amaya DNP [address] [facility] [address], [address] [place] [address] 09/11/2025 2:45 PM EDT Office Visit [facility] [address] [address] Destiney Hernadez [address] [facility] [place] [address] [email or web address] 10/02/2025 11:40 AM EST Office Visit [facility] [address] [place] [address] 3rd Floor, [address] [place] [address] Kulwinder Sam MD [address] [place] [address] 12/23/2025 1:00 PM EST Office Visit [facility] [address] [place] [address] Unknown, Unknown, Lucita Corrales, TRANSFORMER TESTER [address] [place] [address] 02/08/2026 2:00 PM EDT Office Visit [facility] [address] [place] [address] Destiney Hernadez [address] [facility] [place] [address] [email or web address] 02/12/2026 12:20 PM EDT Office Visit [facility] [address] 3rd Floor, [address] [place] [address] Jack Tomlinson MD, MS [address] [facility], [address] [place] [address] 04/12/2026 9:00 AM EDT Office Visit [facility] Neurology at [address] [place] [address] Yury Christianson MD, PhD [address] [place] [address] [place] [address] [email or web address] documented as of this encounter Visit Diagnoses Not on filedocumented in this encounter Care Teams Crystal Growing Technician Relationship Specialty Start Date End Date TcMark Anthony malloy [address] [place] [address] [address] [place] [address] PCP - General Internal Medicine 12/01/22 03/05/25 Destiney Hernadez [address] [facility] [place] [address] PCP - General Family Medicine 03/06/25 documented as of this encounter Additional Source Comments The information contained in this document represents components of the legal health record. It is not the complete legal health record.[facility]
--- OUTSIDE RECORDS SUMMARY | 2025-08-11 13:00 | XMS_ITS | Encounter Summary ---
Author Organization [facility] Address [address] [place] [address] Phone Care Team Providers Care Ornamental Ironworker Helper Name Role Phone Phil Mark Anthonyelisa HANKINS Primary Care Provider [phone] Destiney Hernadez Primary Care Provider [phone] Encounter Details Date Type Department Care Team ([facility] st Contact Info) Description 02/02/2025 Procedure Pass [facility], Ct Scan [facility] [address] [place] [address] Social History Tobacco Use Types Packs/Day Years [...] 07/20/2025 Procedure Pass [facility] Lab [address] [place] [address] 08/25/2025 10:30 AM EDT Appointment [facility] Echo [facility] [address] [place] [address] Radha Amaya DNP [address] [facility], [address] [place] [address] 09/11/2025 2:45 PM EDT Office Visit [facility] [address] [place] [address] Destiney Hernadez [address] [facility], [address] [place] [address] [email or web address] 10/02/2025 11:40 AM EST Office Visit [facility] [address] [place] [address] 3rd Floor, [address] [place] [address] Kulwinder Sam MD [address] [place] [address] 12/23/2025 1:00 PM EST Office Visit [facility] [address] [place], [place] [id number] Unknown, Unknown, Lucita Corrales, ETCHER HAND [address] [place] [address] 02/08/2026 2:00 PM EDT Office Visit [facility] [address] [place] [address] Destiney Hernadez [address] [facility] [place] [address] [email or web address] 02/12/2026 12:20 PM EDT Office Visit [facility] [address] 3rd Floor, [address] [place] [address] Jack Tomlinson MD, MS [address] [facility], [address] [place] [address] 04/12/2026 9:00 AM EDT Office Visit [facility] Neurology at [address] [place] [address] Yury Christianson MD, PhD [address] [place] [address] [place] [address] [email or web address] documented as of this encounter Visit Diagnoses Not on filedocumented in this encounter Additional Health Concerns Assessment Noted Time PHQ-2 Depression Total Score: 1 03/06/20 12:49 PM EDT documented as of this encounter Care Teams Ornamental Ironworker Helper Relationship Specialty Start Date End Date Mark Anthony Villarreal DO [address] [place] [address] [address] [place] [address] PCP - General Internal Medicine 12/01/22 03/05/25 Destiney Hernadez [address] [place] [address], [address] [place] [address] PCP - General Family Medicine 03/06/25 documented as of this encounter Additional Source Comments The information contained in this document represents components of the legal health record. It is not the complete legal health record.[facility]
--- OUTSIDE RECORDS SUMMARY | 2025-08-11 13:00 | XMS_ITS | Patient Health Record ---
Author Organization [facility] Address [address] [place] [address] Care Team Providers Care Before And After School Daycare Worker Name Role Phone JAYDEN BLEDSOE Primary Care [...] 0.05 % 1 application Externally Once a day; Duration: 7 days 06/17/2020 Not-Taking valACYclovir HCl 500 MG 1 tablet Orally Once a day prn; Duration: 10 day(s) Active ProAir HFA 108 (90 [...] with withdrawal (F17.203) Active confirmed Problem Constipation (02440276) Constipation, unspecified (K59.00) Active confirmed Problem Vitamin D deficiency (13992343) Vitamin D deficiency (E55.9) Active confirmed Problem Obesity (111410017) Obesity (E66.9) Active confirmed Problem Panic disorder (342120459) Panic disorder (F41.0) Active confirmed Problem Asthma without status asthmaticus (93313454) Asthma, unspecified asthma severity, unspecified whether complicated, unspecified whether persistent (J45.909) Active confirmed Problem Smoking (12341023) Smoking (F17.200) Active confirmed Plan Of Treatment Pending Test Test Name Order Date VENIPUNCT, ROUTINE 07/07/2020 X ray : Foot, left 3v 08/20/2020 Medical (General) History Medical History History ICD Code Myokymia PTSD Anxiety Depression Anemia Osteopenia Asthma Herpes Arthritis Carpal Tunnel Surgical History Surgery Date(Month/Year) partial hysterectomy 1994 Left upper quadrant hernia surgery 2012 Hospitalization History Reason Date(Month/Year) Syncope 2019 Psych Episode 2010 Psych Episode 2015
--- OUTSIDE RECORDS SUMMARY | 2025-08-11 13:00 | XMS_ITS | Clinical Summary ---
Author Organization [facility] Address [address] [place] [address] [place] [address] Phone Care Team Providers Care Slip Sheeter Name Role Phone Ernestine De Jesus Primary Care Provider [phone] Allergies Active Allergy Reactions Criticality Noted Date [...] sleep apnea syndrome 06/14/2023 06/14/20 23 06/14/2023 Post-traumatic stress disorder 06/14/2023 06/14/2023 06/14/2023 Osteopenia 06/14/2023 [...] patient's age to complete this topic Insurance [facility] ([id number]) [place] [id number] [facility] ([id number]) Care Teams Slip Sheeter Relationship Specialty Start Date End Date Ernestine De Jesus [address] [place] [address] [id number] PCP - General 06/18/23
--- OUTSIDE RECORDS SUMMARY | 2025-08-11 13:00 | XMS_ITS | Encounter Summary ---
Author Organization [facility] Address [address] [place] [address] Phone Care Team Providers Care Rug Drying Machine Operator Name Role Phone Mark Anthony Villarreal DO Primary Care Provider [phone] Destiney Hernadez Primary Care Provider [phone] Encounter Details Date Type Department Care Team ([facility] st Contact Info) Description 12/18/2023 Telephone [facility] Main Endoscopy [address] [place] [address] Herminia Simms RN [address] [place] [address] [email or web address] Social History Tobacco Use Types Packs/Day Years Used Date Smoking Tobacco: Every Day Cigarettes 0.5 52.7 Started: 1973 Smokeless Tobacco: Never Comments:Plans to cut down g radually, setting her quit date as 11/23/2023, when [...] st Contact Info) Description 07/20/2025 Procedure Pass [facility] Echo Lab [address] [place] [address] 08/25/2025 10:30 AM EDT Appointment [facility] Echo Lab [address] [place] [address] Radha Amaya DNP [address] [facility], [address] [place] [address] 09/11/2025 2:45 PM EDT Office Visit [facility] [address] [place] [address] Destiney Hernadez [address] [facility], [address] [place] [address] [email or web address] 10/02/2025 11:40 AM EST Office Visit [facility] [address] [place] [address] 3rd Floor, [address] [place] [address] Kulwinder Sam MD [address] [place] [address] 12/23/2025 1:00 PM EST Office Visit [facility] [address] [place] [address] Unknown, Unknown, Lucita Corrales, MANAGER ASSET [address] [place] [address] 02/08/2026 2:00 PM EDT Office Visit [facility] [address] [place] [address] Destiney Hernadez [address] [facility], [address] [place] [address] [email or web address] 02/12/2026 12:20 PM EDT Office Visit [facility] [address] [facility] 3rd Floor, [address] [place] [address] Jack Tomlinson MD, MS [address] [facility], [address] [place] [address] 04/12/2026 9:00 AM EDT Office Visit [facility] Neurology at [address] [place] [address] Yury Christianson MD, PhD [address] [place] [address] Department [place] [address] [email or web address] documented as of this encounter Visit Diagnoses Not on filedocumented in this encounter Care Teams Rug Drying Machine Operator Relationship Specialty Start Date End Date Mark Anthony Villarreal DO [address] [place] [address] [address] [place] [address] PCP - General Internal Medicine 12/01/22 03/05/25 Destiney Hernadez [address] [place] [address], [address] [place] [address] PCP - General Family Medicine 03/06/25 documented as of this encounter Additional Source Comments The information contained in this document represents components of the legal health record. It is not the complete legal health record.[facility]
--- OUTSIDE RECORDS SUMMARY | 2025-08-11 13:01 | XMS_ITS | Clinical Summary ---
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 07/31/2025 1:59 PM EDT [employer] [facility] LAB BLOOD ORDERABLES Final Resul t Performing Organization Address [facility] Co de Phone Number [address] [address] * Antinuclear antibody (BRENT) (07/31/2025 1:50 PM EDT) Pathologist [facility] BRENT SCREEN ON HEP 2 Negative Negative [facility] Blood 07/31/2025 1:50 PM EDT 07/31/2025 1:59 PM EDT [employer] [facility] LAB BLOOD ORDERABLES Final Resul t Performing Organization Address [facility] Co de Phone Number [address] [address] * Vitamin B1 (thiamine) (07/31/2025 1:50 PM EDT) Pathologist [facility] VITAMIN B1 110 70 - 180 nmol/L [facility] SUPERIOR Comment: (NOTE) ADDITIONAL INFORMATION This test was developed and its performance characteristics determined by [facility] in a manner consistent with CLIA requirements. This test has not been cleared or approved by the U.S. Food and Drug Administration. Blood 07/31/2025 1:50 PM EDT 07/31/2025 1:59 PM EDT [employer] [facility] LAB BLOOD ORDERABLES Final Resul t [facility]PATH SUPERIOR [address] [place] [address] * Vitamin B12 (07/31/2025 1:50 PM EDT) VITAMIN B12 895 232 - 1,245 pg/mL [facility] Blood 07/31/2025 1:50 PM EDT 07/31/2025 1:59 PM EDT [employer] [facility] LAB BLOOD ORDERABLES Final Resul t Performing Organization Address City/[facility] Co de Phone Number [address] [address] * Outside Procedure (06/24/2025) us Scanning Interface Provider PROCEDURE/MINOR SURG ICAL PERFORMABLES Final Result * XR ABDOMEN 1 VIEW (06/23/2025 2:20 PM EDT) Anatomical Region Laterality Modality Abdomen Computed Radiogr aphy 06/23/2025 2:22 PM EDT Impressions 06/23/2025 2:23 PM EDT 1. No acute abdominal abnormality is identified. 2. Surgical changes within the pelvis. Narrative 06/23/2025 2:23 PM EDT XR ABDOMEN 1 VIEW Referring clinician's provided indication for this examination in Epic: Pain COMPARISON: None. FINDINGS: Devices and lines/tubes: Devices: No devices are identified. Lines/tubes: No lines/tubes are present. Chest: The heart size is normal. The lung bases are clear. Abdomen: The bowel gas pattern is without evidence of obstruction. There is no evidence of colonic thumbprinting. Scant fecal loading. No colonic distention is present. There is no evidence of free intraperitoneal air. There is no pneumatosis, or portal venous gas. No intraabdominal calcifications are present. Multiple pelvic phleboliths are identified. There are surgical clips identified in the left pelvic inlet as well as midline lower pelvis. Bones: The visualized osseous structures reveal no acute abnormality. Vertebral endplate degenerative changes are present. Soft Tissues: No acute soft tissue abnormality. Procedure Note Arturo Rosas MD - 06/23/2025 XR ABDOMEN 1 VIEW Referring clinician's provided indication for this examination in [facility]:Pain COMPARISON: None. FINDINGS: Devices and lines/tubes: Devices: No devices are identified. Lines/tubes: No lines/tubes are present. Chest: The heart size is normal. The lung bases are clear. Abdomen: The bowel gas pattern is without evidence of obstruction. Thereis no evidence of colonic thumbprinting. Scant fecal loading. No colonicdistention is present. There is no evidence of free intraperitoneal air.There is no pneumatosis, or portal venous gas. No intraabdominalcalcifications are present. Multiple pelvic phleboliths are identified.There are surgical clips identified in the left pelvic inlet as well asmidline lower pelvis. Bones: The visualized osseous structures reveal no acute abnormality.Vertebral endplate degenerative changes are present. Soft Tissues: No acute soft tissue abnormality. IMPRESSION: 1. No acute abdominal abnormality is identified. 2. Surgical changes within the pelvis. us Pan Noel MD IMG XR ABDOMEN Final Result * ENDOSCOPY, COLON (06/23/2025 1:08 PM EDT) Narrative Transcriptions Pan Noel MD - 06/23/2025 1:08 PM EDT [facility] Patient Name: Tanya Drake Attending MD:: PAN BERT MD, , Procedure Date: 06/23/2025 1:08 PM Date of : 1960 Age: 64 Admit Type: Outpatient Gender: Female Room: [place] [address] Referring MD: Destiney Hernadez Exam Type: Colonoscopy Indications: Change in bowel habits Medications: Monitored Anesthesia Care Procedure: Informed consent was obtained from the patientafter discussion of the indications, limitations, alternatives, benefits, and risks of the procedure. Risks specifically discussed include but are not limited to medication reactions, missed lesions, bleeding, perforation, or the need for emergent surgery. Throughout the procedure, the patient's blood pressure, pulse, end-tidal CO2, and oxygensaturations were monitored continuously. The Colonoscope was introduced through the anus and advanced to the cecum, identified by appendiceal orifice and ileocecal valve. The colonoscopy was performed without difficulty. The patient tolerated the procedure well. The quality of the bowel preparation was excellent. The quality of the bowel preparation was evaluated using the BBPS (BostonBowel Preparation Scale) with scores of: Right Colon = 3, Transverse Colon = 3 and Left Colon = 3 (entiremucosa seen well with no residual staining, smallfragments of stool or opaque liquid). The total BBPS score equals 9. Anatomical landmarks were photographed. Complications: No immediate complications. Estimated blood loss:None. Findings: The perianal and digital rectal examinations were normal. Scattered small and large-mouthed diverticula were found in the sigmoid colon and descending colon. Internal hemorrhoids were found duringretroflexion. The hemorrhoids were mild. The exam was otherwise normal throughout theexamined colon. Impression: - Moderate diverticulosis in the sigmoid colon andin the descending colon. - Internal hemorrhoids. - No specimens collected. Recommendation: - Discharge patient to home. - Repeat colonoscopy in 10 years for screening purposes. PNA NOEL MD, 06/23/2025 1:27:39 PM This report has been signed electronically. Number of Addenda: 0 Note Initiated On: 06/23/2025 1:08 PM Procedure Code(s): --- Professional --- 33086, Colonoscopy, flexible; diagnostic, including collection of specimen(s) by brushing or washing, when performed (separateprocedure) --- Technical --- 46358, Colonoscopy, flexible; diagnostic, including collection of specimen(s) by brushing or washing, when performed (separateprocedure) Diagnosis Code(s): --- Professional --- K64.8, Other hemorrhoids R19.4, Change in bowel habit K57.30, Diverticulosis of large intestine without perforation or abscess without bleeding --- Technical --- K64.8, Other hemorrhoids R19.4, Change in bowel habit K57.30, Diverticulosis of large intestine without perforation or abscess without bleeding CPT copyright 2021 [employer]. All rights reserved. The codes documented in this report are preliminary and upon invoice coder reviewmay be revised to meet current compliance requirements. Procedure Date: 06/23/2025 1:08:[address] [place] [address] Destiney Hernadez GI PROCEDURE ORDERABLES Chito sina Result - Final * AUTONOMIC TESTING (05/26/2025 12:46 PM EDT) Anatomical Region Laterality Modality Other Other Narrative 06/29/2025 9:27 AM EDT Yury Christianson MD, PhD 06/29/2025 9:27 AM Autonomic Testing Date/Time: 06/29/2025 9:27 AM Performed by: Yury Christianson MD, PhD Authorized by: Pau Saldivar DNP Pau Saldivar DNP NEUROLOGY ORDERABLES Final Result * CT CHEST LUNG CANCER SCREENING INITIAL (03/25/2025 11:43 AM EDT) Anatomical Region Laterality Modality Chest Computed Tomogra phy 03/30/2025 11:5 5 AM EDT Impressions 03/30/2025 11:58 AM EDT Lung-RADS Category: 2. The identified solid nodule has a very low likelihood of becoming a clinically active cancer, due to size and/or lack of growth. RECOMMENDATIONS: Continue Lung-RADS Annual Lung Cancer Screening Chest CT in 12-14 months if patient meets eligibility criteria. To order, please type CT CHEST SCREENING (CT.TH.CHESTSCRS) and select ANNUAL for patient program status. Explanation of the Lung-RADS categories can be found at: [email or web address] Narrative 03/30/2025 11:[address] CHEST LUNG CANCER SCREENING INITIAL Referring clinician's provided indication for this examination in [facility]: Lung Cancer Screening - CURRENT smoker (20+ pk-yrs, age 50-80) - ICD -10 F17.210 TECHNIQUE: Low dose multidetector CT of the chest was performed without intravenous contrast using tailored dose modulation techniques. COMPARISON: None available. FINDINGS: Devices/Tubes/Lines: None. Lungs: A 3 mm nodule is in the left lower lobe (4:206). Mild subsegmental atelectasis is in the lingula and left lower lobe. Patent central airways. Pleura: No pleural effusion or pneumothorax. Mediastinum: No pericardial effusion. No detectable coronary artery calcification. Lymph Nodes: No enlarged supraclavicular, axillary, or mediastinal lymph nodes by CT size.. Upper Abdomen: Absence of intravenous contrast and low dose technique limits sensitivity for detecting small lesions, solid organ and vascular findings. Few colonic diverticula. Chest Wall: No suspicious chest wall mass. Bones: No destructive osseous lesions. Procedure Note Pilar Rosas MD - 03/30/2025 CT CHEST LUNG CANCER SCREENING INITIAL Referring clinician's provided indication for this examination in [facility]:Lung Cancer Screening - CURRENT smoker (20+ pk-yrs, age 50-80) - ICD -10F17.210 TECHNIQUE: Low dose multidetector CT of the chest was performed withoutintravenous contrast using tailored dose modulation techniques. COMPARISON: None available. FINDINGS: Devices/Tubes/Lines: None. Lungs: A 3 mm nodule is in the left lower lobe (4:206). Mild subsegmentalatelectasis is in the lingula and left lower lobe. Patent centralairways. Pleura: No pleural effusion or pneumothorax. Mediastinum: No pericardial effusion. No detectable coronary arterycalcification. Lymph Nodes: No enlarged supraclavicular, axillary, or mediastinal lymphnodes by CT size.. Upper Abdomen: Absence of intravenous contrast and low dose techniquelimits sensitivity for detecting small lesions, solid organ and vascularfindings. Few colonic diverticula. Chest Wall: No suspicious chest wall mass. Bones: No destructive osseous lesions. IMPRESSION: Lung-RADS Category: 2. The identified solid nodule has a very lowlikelihood of becoming a clinically active cancer, due to size and/or lackof growth. RECOMMENDATIONS: Continue Lung-RADS Annual Lung Cancer Screening Chest CT in 12-14 monthsif patient meets eligibility criteria. To order, please type CT CHEST SCREENING (CT.TH.CHESTSCRS) and selectANNUAL for patient program status. Explanation of the Lung-RADS categories can be found at:[email or web address] us Jack Tomlinson MD, MS IMG CT CHEST Final Res ult * Comprehensive metabolic panel (03/13/2025 11:21 AM EDT) SODIUM 140 133 - 146 mmol/L [facility] POTASSIUM 4.8 3.3 - 5.1 mmol/L [facility] CHLORIDE 105 96 - 108 mmol/L [facility] CO2 27 21 - 35 mmol/L [facility] BUN 15 6 - 19 mg/dL [facility] CREATININE 0.60 0.5 - 1.5 mg/dL [facility] GLUCOSE 99 70 - 99 mg/dL [facility] ALBUMIN 4.1 3.9 - 4.8 g/dL [facility] TOTAL PROTEIN 7.2 6.5 - 8.0 g/dL [facility] CALCIUM 8.9 8.4 - 10.3 mg/dL [facility] ALKALINE PHOSPHATASE 79 39 - 117 U/L [facility] TOTAL BILIRUBIN <0.2 0.0 - 1.2 mg/dL [facility] AST 17 0 - 37 U/L [facility] ALT 13 0 - 40 U/L [facility] GLOBULIN 3.1 1 - 4.8 g/dL [facility] EGFR 100 >59 mL/min/1.7 3m2 [facility] Comment:Estimated glomerular filtration rate calculated using the CKD-EPI refit equation. ANION GAP 13 10 - 20 mmol/L [facility] Blood 03/13/2025 11:2 1 AM EDT 03/13/2025 11:23 AM EDT [employer] LAB BLOOD ORDERABLES Final Result [address] [address] * (ABNORMAL) Lipid panel (03/13/2025 11:21 AM EDT) HDL 55 mg/dL [facility] Comment: Interpretation <40 mg/dL: Low HDL cholesterol (major risk factor for CHD) Greater than or equal to 60 mg/dL: High HDL cholesterol ( negative risk factor for CHD) HDL - cholesterol is affected by a number of factors, e.g. smoking, excerise, hormones, sex and age. CHOLESTEROL 218 0 - 240 mg/dL [facility] TRIGLYCERIDES 119 30 - 160 mg/dL [facility] LDL 139(H) 50 - 129 mg/dL [facility] Comment: LDL levels in terms of risk for coronary heart disease: <100 mg/dL: Optimal 100-129 mg/dL: Near or above optimal 130-159 mg/dL: Borderline high 160-189 mg/dL: High >190 mg/dL: Very High CARDIAC RISK RATIO 4.0 3.3 - 4.4 [facility] Blood 03/13/2025 11:2 1 AM EDT 03/13/2025 11:24 AM EDT [employer] LAB BLOOD ORDERABLES Final Result [address] [address] from Last 3 Months or Most Recently Relevant to Health Maintenance Insurance [facility] MEDICARE REPLACEMENT MEDICARE PART A & B MEDICARE PART A & B [id number] [place] [address] MEDICARE REPLACEMENT MEDICARE PART A & B Member Subscriber Plan / Payer (Ef fective 2015-Present) Name:Tanya Drake Member ID:[id number] Relation to Subscriber:Self Name:Tanya Drake Subscriber ID:[id number] Payer ID:[id number] Group ID:Not on file Type:Medicare Address: [facility] [employer] [facility] [address] [place] [phone] [facility] MED[facility]PLACEMENT MEDICARE PART A & B [facility] MEDICARE REPLACEMENT MEDICARE PART A & B [facility] MEDICARE REPLACEMENT MEDICARE PART A & B [facility] MEDICARE REPLACEMENT Care Teams Commercial Assistant Relationship Specialty Start Date End Date Destiney Hernadez [address] [place] [address], [address] [place] [phone] [email or web address] PCP - General Family Medicine 03/06/25 Additional Source Comments The information contained in this document represents components of the legal health record. It is not the complete legal health record.[facility]
--- OUTSIDE RECORDS SUMMARY | 2025-08-11 13:01 | XMS_ITS | Encounter Summary ---
Author Organization [facility] Address [address] [place] [address] Phone Care Team Providers Care Commercial Escrow Officer Name Role Phone Mark Anthony Villarreal DO Primary Care Provider [phone] Destiney Hernadez Primary Care Provider [phone] Encounter Details Date Type Department Care Team (Late st Contact Info) Description 05/09/2024 Transcribe Orders [facility] Specimen Processing [address] [place] [address] Mark Anthony Villarreal DO [address] [place] [address] Social History Tobacco Use Types Packs/Day Years [...] st Contact Info) Description 07/20/2025 Procedure Pass [facility] [address] [place] [address] 08/25/2025 10:30 AM EDT Appointment [facility] [address] [place] [address] Radha Amaya DNP [address], [address] [place] [address] 09/11/2025 2:45 PM EDT Office Visit [facility] [address] [place] [address] Destiney Hernadez [address] [place] [address] [email or web address] 10/02/2025 11:40 AM EST Office Visit [facility] [address], [address] [place] [address] Kulwinder Sam MD [address] [place] [address] 12/23/2025 1:00 PM EST Office Visit [facility] [address] [place] [address] Unknown, Unknown, Lucita Corrales, HVAC/R SERVICE TECHNICIAN [address] [place] [address] 02/08/2026 2:00 PM EDT Office Visit [facility] [address] [place] [address] [place] [address] Destiney Hernadez [address] [place] [address] [email or web address] 02/12/2026 12:20 PM EDT Office Visit [facility] [address], [address] [place] [address] Jack Tomlinson MD, MS [address], [address] [place] [address] 04/12/2026 9:00 AM EDT Office Visit [facility] [place] [address] [place] [address] [address] [place] [address] Yury Christianson MD, PhD [address] [place] [address] [place] [address] [email or web address] documented as of this encounter Visit Diagnoses Not on filedocumented in this encounter Care Teams Commercial Escrow Officer Relationship Specialty Start Date End Date Mark Anthony Villarreal DO [address] [facility] [address] [place] [address] PCP - General Internal Medicine 12/01/22 03/05/25 Destiney Hernadez [address] [place] [address], [address] [place] [address] PCP - General Family Medicine 03/06/25 documented as of this encounter Additional Source Comments The information contained in this document represents components of the legal health record. It is not the complete legal health record.[facility]
--- OUTSIDE RECORDS SUMMARY | 2025-08-11 13:01 | XMS_ITS | Patient Health Record ---
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 Problem Diverticula of intestine (31598991) Diverticulosis of intestine, part unspecified, without perforation or abscess without bleeding (K57.90) Active confirmed Problem Constipation (69595114) Constipation, unspecified (K59.00) Active confirmed Problem Hemorrhage of rectum and anus (308270663) Hemorrhage of anus and rectum (K62.5) Active confirmed Problem Abdominal pain (30451467) Unspecified abdominal pain (R10.9) Active confirmed Plan Of Treatment No Information Insurance Providers Payer Name Payer Address Payer Phone Subscriber Number Group Number Insured Name Patient Relationship to Insured Coverage Start Date Coverage End Date [employer] O [address] [address] [place], [place] [id number] Tanya Drake Self - patient is the insured Medical [...]
--- OUTSIDE RECORDS SUMMARY | 2025-08-11 13:01 | XMS_ITS | Encounter Summary ---
Author Organization [facility] Address [address] [place] [address] Phone Care Team Providers Care Aircraft Life Support Fitter Name Role Phone Juan LuisMark Anthony cardenas Primary Care Provider Destiney Hernadez Primary Care Provider [phone] Encounter Details Date Type Department Care Team ([facility] Contact Info) Description 07/27/2023 Transcribe Orders [facility] Specimen Processing [address] [place] [address] Marcus Brito MD [address] [place] [address] Social History Tobacco Use Types Packs/Day Years Used Date Smoking Tobacco: Every Day Cigarettes 0.5 52.7 Started: 1974 Education Answer Date Recorded Are you interested in more education? Not on bety e 03/09/2023 Are you concerned about learning? Not on file 03/09/2023 No 03/09/2023 No 03/09/2023 Digital Access Answer Date Recorded No 04/09/2023 No 04/09/2023 Reliable internet access at home? Not on file 04/09/2023 Device with a working camera? Not on file Comments Unknown Sex and Gender Information Value Date Recorded Sex Assigned at Not on file Legal Sex Female 10:34 PM EDT Gender Identity Not on file Sexual Orientation Not on file documented as of this encounter Plan of Treatment Upcoming Encounters Date Type Department Care Team ([facility] Contact Info) Description 07/20/2025 Procedure Pass [facility] [address] [place] [address] 08/25/2025 10:30 AM EDT Appointment [facility] [address] [place] [address] Radha AmayaMARANDA [address], [address] [place] [address] 09/11/2025 2:45 PM EDT Office Visit [address] [place] [address] Destiney Hernadez [address] [place] [address], [address] [place] [address] [email or web address] 10/02/2025 11:40 AM EST Office Visit [address], [address] [place] [address] Kulwinder Sam MD [address] [place] [address] 12/23/2025 1:00 PM EST Office Visit [facility] [address] [place] [address] Unknown, Unknown, Lucita Corrales, INTERPRETER DEAF [address] [place] [address] 02/08/2026 2:00 PM EDT Office Visit [address] [place] [address] Destiney Hernadez [address] [place] [address], [address] [place] [address] [email or web address] 02/12/2026 12:20 PM EDT Office Visit [address], [address] [place] [address] Jack Tomlinson MD, MS [address], [address] [place] [address] [email or web address] 04/12/2026 9:00 AM EDT Office Visit [facility] Neurology at [place] [address] [place] [address] Yury Christianson MD, PhD [address] [place] [address] Department [place] [address] [email or web address] documented as of this encounter Visit Diagnoses Not on filedocumented in this encounter Care Teams Aircraft Life Support Fitter Relationship Specialty Start Date End Date Mark Anthony Villarreal DO [address] [place] [address] [address] [place] [address] PCP - General Internal Medicine 12/01/22 03/05/25 Destiney Hernadez [address] [place] [address], [address] [place] [address] [email or web address] PCP - General Family Medicine 03/06/25 documented as of this encounter Additional Source Comments The information contained in this document represents components of the legal health record. It is not the complete legal health record.[facility]
--- OUTSIDE RECORDS SUMMARY | 2025-08-11 13:01 | XMS_ITS | Encounter Summary ---
Author Organization [facility] Address [address] [place] [address] Phone Care Team Providers Care Propagator Name Role Phone Destiney Hernadez Primary Care Provider Encounter Details Date Type Department Care Team ([facility] st Contact Info) Description 06/23/2025 Procedure Pass [facility] Endoscopy Admitting Dept Virtual Department [address] [place] [address] Social History Tobacco Use Types Packs/Day Years Used Date Smoking Tobacco: Every Day Cigarettes 0.5 52.7 Started: 1973 Smokeless Tobacco: Never Comments:Plans to cut down miguel a laceyually, setting her quit date as 11/23/2023, when [...] high school, GED, job training, learning the Welsh language, technical skills, or developing parenting skills)? [...] 07/20/2025 Procedure Pass [facility] Echo Lab [address] [place] [address] 08/25/2025 10:30 AM EDT Appointment [facility] Echo Lab [address] [place] [address] Radha Amaya DNP [address] [place] [address], [address] [address] 09/11/2025 2:45 PM EDT Office Visit [address] [place] [address] Destiney Hernadez [address] [place] [address], [address] [place] [address] [email or web address] 10/02/2025 11:40 AM EST Office Visit [facility] [address] 3rd Floor, [address] [place] [address] Kulwinder Sam MD [address] [place] [address] 12/23/2025 1:00 PM EST Office Visit [facility] [address] [place] [address] Unknown, Unknown, Lucita Corrales, CLIENT SERVICES ASSISTANT [address] [place] [address] 02/08/2026 2:00 PM EDT Office Visit [address] [place] [address] Destiney Hernadez [address] [place] [address], [address] [place] [address] [email or web address] 02/12/2026 12:20 PM EDT Office Visit [facility] [address] Floor, [address] [place] [address] Jack Tomlinson MD, MS [address] [facility], [address] [place] [address] 04/12/2026 9:00 AM EDT Office Visit [facility] Neurology at [facility] [address] [place] [address] Yury Christianson MD, PhD [address] [place] [address] [email or web address] documented as of this encounter Visit Diagnoses Not on filedocumented in this encounter Additional Health Concerns Assessment Noted Time PHQ-2 Depression Total Score: 1 03/06/20 12:49 PM EDT documented as of this encounter Care Teams Propagator Relationship Specialty Start Date End Date Destiney Hernadez [address] [place] [address], [address] [place] [address] [email or web address] PCP - General Family Medicine 03/06/25 documented as of this encounter Additional Source Comments The information contained in this document represents components of the legal health record. It is not the complete legal health record.[facility]
--- OUTSIDE RECORDS SUMMARY | 2025-08-11 13:01 | XMS_ITS | Encounter Summary ---
Author Organization [facility] Address [address] [place] [address] Phone Care Team Providers Care Senior Datastage Developer Name Role Phone Juan Luiscassiemary ellenMark Anthony malloy Primary Care Provider [phone] Destiney Hernadez Primary Care Provider Encounter Details Date Type Department Care Team ([facility] Contact Info) Description 07/05/2023 Transcribe Orders Virtual Department [address] [place] [address] Zeus Lawson MD [address] [address] Social History Tobacco Use Types Packs/Day Years [...] Upcoming Encounters Date Type Department Care Team ([facility] Contact Info) Description 07/20/2025 Procedure Pass [facility] Echo Lab [address] [place] [address] 08/25/2025 10:30 AM EDT Appointment [facility] Echo Lab [address] [place] [address] Jose Luis RadhaMARANDA villafana [address] [facility], [address] [place] [address] 09/11/2025 2:45 PM EDT Office Visit [address] [place] [address] Destiney Hernadez [address] [place] [address], [address] [place] [address] [email or web address] 10/02/2025 11:40 AM EST Office Visit [facility] [address] 3[address] Floor, [address] [place] [address] Kulwinder Sam MD [address] [place] [address] 12/23/2025 1:00 PM EST Office Visit [facility] [address] [place] [address] Unknown, Unknown, MD Boothe, Lucita Duval, SWEATBAND SHAPER [address] [place] [address] 02/08/2026 2:00 PM EDT Office Visit [address] [place] [address] Destiney Hernadez [address] [place] [address], [address] [place] [address] [email or web address] 02/12/2026 12:20 PM EDT Office Visit [address] 3rd Floor, [address] [place] [address] Jack Tomlinson MD, MS [address] [facility], [address] [place] [address] [email or web address] 04/12/2026 9:00 AM EDT Office Visit [facility] Neurology at [place] [address] [place] [address] [place] [address] [place] [address] [place] [address] [email or web address] documented as of this encounter Visit Diagnoses Not on filedocumented in this encounter Care Teams Senior Datastage Developer Relationship Specialty Start Date End Date Mark Anthony Villarreal DO [address] [place] [address] [address] [place] [address] PCP - General Internal Medicine 12/01/22 03/05/25 Destiney Hernadez [address] [facility], [address] [place] [address] [email or web address] PCP - General Family Medicine 03/06/25 documented as of this encounter Additional Source Comments The information contained in this document represents components of the legal health record. It is not the complete legal health record.[facility]
--- OUTSIDE RECORDS SUMMARY | 2025-08-11 13:01 | XMS_ITS | Encounter Summary ---
Author Organization [facility] Address [address] [place] [address] Phone Care Team Providers Care Wash Oil Cooler Operator Name Role Phone PhilMark Anthony Primary Care Provider [phone] Destiney Hernadez Primary Care Provider [phone] Encounter Details Date Type Department Care Team (Late st Contact Info) Description 08/24/2023 Procedure Pass [facility] Echo [facility] [address] [place] [address] Social History Tobacco Use Types Packs/Day Years [...] st Contact Info) Description 07/20/2025 Procedure Pass [facility] Echo Lab [address] [place] [address] 08/25/2025 10:30 AM EDT Appointment [facility] Echo Lab [address] [place] [address] Radha Amaya DNP [address] [facility], [address] [place] [address] 09/11/2025 2:45 PM EDT Office Visit [facility] [address] [address] Destiney Hernadez [address] [facility], [address] [place] [address] [email or web address] 10/02/2025 11:40 AM EST Office Visit [facility] [address] [place] [address] 3rd Floor, [address] [place] [address] Kulwinder Sam MD [address] [place] [address] 12/23/2025 1:00 PM EST Office Visit [facility] [address] [place] [address] Unknown, Unknown, Lucita Corrales, PERSONNEL PSYCHOLOGIST [address] [place], [place] [id number] 02/08/2026 2:00 PM EDT Office Visit [facility] [address] [place] [address] Destiney Hernadez [address] [facility], [address] [place] [address] [email or web address] 02/12/2026 12:20 PM EDT Office Visit [facility] [address] Floor, [address] [place] [address] Jack Tomlinson MD, MS [address] [facility], [address] [place] [address] 04/12/2026 9:00 AM EDT Office Visit [facility] Neurology at [address] [place] [address] Yury Christianson MD, PhD [address] [place] [address] Department [place] [address] [email or web address] documented as of this encounter Visit Diagnoses Not on filedocumented in this encounter Care Teams Wash Oil Cooler Operator Relationship Specialty Start Date End Date Mark Anthony Villarreal DO [address] [place] [address] [address] [place] [address] PCP - General Internal Medicine 12/01/22 03/05/25 Destiney Hernadez [address] [facility], [address] [place] [address] PCP - General Family Medicine 03/06/25 documented as of this encounter Additional Source Comments The information contained in this document represents components of the legal health record. It is not the complete legal health record.[facility]
--- OUTSIDE RECORDS SUMMARY | 2025-08-11 13:01 | XMS_ITS | Patient Health Record ---
Author Organization [facility] Address [address] [place] [address] Care Team Providers Care Fire Equipment Operator Name Role Phone DIOR NUNN Primary Care Provider [phone] Reason For Referral No Information Plan Of Treatment No Information Insurance Providers Payer Name Payer Address Payer Phone Subscriber Number Group Number Insured Name Patient Relationship to Insured Coverage Start Date Coverage End Date [employer] OUT OF AREA [address] [place] [address] [id number] ONEIDA SALGUERO Self - patient is the insured MEDICARE [address] [facility] [place] [address] [phone] [id number] ONEIDA SALGUERO Self - patient is the insured
== END 2025-08-11 12:34 | disposition home or self-care (01) ==
LOC: HO.HSM 11:33
PROVIDERS: PCP Internal Medicine; Visit Provider Registered Nurse
DX: G25.3 Myoclonus (principal); R55 Syncope and collapse; G40.909 Epilepsy, unspecified, not intractable, without status epilepticus
CPT/HCPCS: 99214

== ENCOUNTER → 2025-08-11 11:32 | Outpatient (BNVA) | payer OTHER, SELFPAY | PROVIDERS: PCP Internal Medicine; Visit Provider Registered Nurse | DX: G25.3 Myoclonus (principal); R55 Syncope and collapse | CPT/HCPCS: 99212 ==